=== PATIENT | female | born 1960 | race Caucasian/White ===

== ENCOUNTER 2017-10-11 10:02 | Inpatient (IN) | payer BC ==
[2017-10-11] MEDS ORDERED: IPRATROPIUM-ALBUTEROL 3 ML NEB INHALATION STA (10:20)
--- NOTE | 2017-10-11 10:22 | ED ---
General Adult HPI - General Chief complaint: Shortness of Breath Stated complaint: IZABEL Time Seen by Provider: 10/11/17 10:15 Source: patient, family, RN notes reviewed Mode of arrival: wheelchair Limitations: no limitations - History of Present Illness Initial comments: Patient is a pleasant 37-year-old female presenting to the emergency Department with complaints of shortness of breath. Symptoms have progressed with the past week. Patient does have a history of previous asthma/COPD. No fevers. Patient does have a productive cough with yellow sputum. Patient states symptoms worsen with exertion. - Related Data Home Medications Medication Instructions Recorded Confirmed Albuterol Inhaler [Ventolin 2 puff INHALATION Q4HR PRN 01/04/14 01/04/14 Inhaler] Fluticasone Propionate [Flovent 2 puff INHALATION BID 01/04/14 01/04/14 Hfa 110mcg] Lisinopril [Zestril] 10 mg PO DAILY 01/04/14 01/04/14 Loratadine [Claritin] 10 mg PO DAILY 01/04/14 01/04/14 Previous Rx's Medication Instructions Recorded Naproxen [Naprosyn] 500 mg PO Q12HR #24 tab 01/04/14 Allergies Allergy/AdvReac Type Severity Reaction Status Date / Time amoxicillin trihydrate Allergy Unknown Verified 10/11/17 10:11 [From Augmentin] potassium clavulanate Allergy Unknown Verified 10/11/17 10:11 [From Augmentin] Review of Systems ROS Statement: Those systems with pertinent positive or pertinent negative responses have been documented in the HPI. ROS Other: All systems not noted in ROS Statement are negative. Constitutional: Denies: fever, chills Eyes: Denies: eye pain ENT: Denies: ear pain Respiratory: Reports: cough, dyspnea Cardiovascular: Denies: chest pain Endocrine: Reports: fatigue Gastrointestinal: Denies: abdominal pain Genitourinary: Denies: dysuria Musculoskeletal: Denies: back pain Skin: Denies: rash Neurological: Denies: weakness Past Medical History Past Medical History: Asthma, COPD, Hypertension History of Any Multi-Drug Resistant Organisms: None Reported Past Surgical History: Orthopedic Surgery, Tubal Ligation Additional Past Surgical History / Comment(s): RIGHT ANKLE SURGERY Past Psychological History: No Psychological Hx Reported Smoking Status: Current every day smoker Past Alcohol Use History: Occasional Past Drug Use History: None Reported General Exam Limitations: no limitations General appearance: alert, in no apparent distress Head exam: Present: atraumatic Eye exam: Present: normal appearance, PERRL ENT exam: Present: normal oropharynx Neck exam: Present: normal inspection Respiratory exam: Present: rales (Right base), rhonchi Cardiovascular Exam: Present: regular rate, normal rhythm GI/Abdominal exam: Present: soft. Absent: tenderness Extremities exam: Present: normal inspection. Absent: pedal edema, calf tenderness Neurological exam: Present: alert Psychiatric exam: Present: normal affect, normal mood Skin exam: Present: normal color Course Vital Signs 10/11/17 10/11/17 10/11/17 10:07 10:42 10:50 Temperature 97.8 F Pulse Rate 87 84 Respiratory 20 20 Rate Blood Pressure 109/59 O2 Sat by Pulse 91 L Oximetry 10/11/17 10:51 Temperature Pulse Rate 88 Respiratory Rate Blood Pressure O2 Sat by Pulse Oximetry - Reevaluation(s) Reevaluation #1: 10/11/17 11:49 Patient does meet sepsis criteria. Dr. Ulloa has been paged for admission. IV antibiotics and blood cultures and lactic acid have been ordered. EKG Findings - EKG Comments: EKG Findings:: Normal sinus rhythm 81. HI 150. QRS 88. QT 374. QTC 436. Left axis. Normal QRS. No acute ST change. Medical Decision Making - Lab Data Result diagrams: 10/11/17 10:31 10/11/17 10:31 Lab Results 10/11/17 10/11/17 10/11/17 Range/Units 10:31 10:31 10:31 WBC 31.6 H* (3.8-10.6) k/uL RBC 3.93 (3.80-5.40) m/uL Hgb 14.0 (11.4-16.0) gm/dL Hct 38.9 (34.0-46.0) % MCV 98.9 (80.0-100.0) fL MCH 35.7 H (25.0-35.0) pg MCHC 36.1 (31.0-37.0) g/dL RDW 13.8 (11.5-15.5) % Plt Count 298 (150-450) k/uL Neutrophils % 95 % Lymphocytes % 3 % Monocytes % 2 % Eosinophils % 0 % Basophils % 0 % Neutrophils # 29.8 H (1.3-7.7) k/uL Lymphocytes # 0.9 L (1.0-4.8) k/uL Monocytes # 0.6 (0-1.0) k/uL Eosinophils # 0.1 (0-0.7) k/uL Basophils # 0.0 (0-0.2) k/uL Toxic Granulation Present RBC Morphology Normal PT (9.0-12.0) sec INR (<1.2) APTT (22.0-30.0) sec Sodium 123 L (137-145) mmol/L Potassium 3.8 (3.5-5.1) mmol/L Chloride 89 L (98-107) mmol/L Carbon Dioxide 18 L (22-30) mmol/L Anion Gap 16 mmol/L BUN 93 H* (7-17) mg/dL Creatinine 1.77 H (0.52-1.04) mg/dL Est GFR (CKD-EPI)AfAm 36 (>60 ml/min/1.73 sqM) Est GFR (CKD-EPI)NonAf 31 (>60 ml/min/1.73 sqM) Glucose 100 H (74-99) mg/dL Calcium 7.9 L (8.4-10.2) mg/dL Total Bilirubin 0.5 (0.2-1.3) mg/dL AST 67 H (14-36) U/L ALT 36 (9-52) U/L Alkaline Phosphatase 165 H (38-126) U/L Total Creatine Kinase 24 L (30-135) U/L CK-MB (CK-2) 1.1 (0.0-2.4) ng/mL CK-MB (CK-2) Rel Index 4.6 Troponin I <0.012 (0.000-0.034) ng/mL NT-Pro-B Natriuret Pep pg/mL Total Protein 5.1 L (6.3-8.2) g/dL Albumin 2.3 L (3.5-5.0) g/dL 18 10/11/17 Range/Units 10:31 10:31 WBC (3.8-10.6) k/uL RBC (3.80-5.40) m/uL Hgb (11.4-16.0) gm/dL Hct (34.0-46.0) % MCV (80.0-100.0) fL MCH (25.0-35.0) pg MCHC (31.0-37.0) g/dL RDW (11.5-15.5) % Plt Count (150-450) k/uL Neutrophils % % Lymphocytes % % Monocytes % % Eosinophils % % Basophils % % Neutrophils # (1.3-7.7) k/uL Lymphocytes # (1.0-4.8) k/uL Monocytes # (0-1.0) k/uL Eosinophils # (0-0.7) k/uL Basophils # (0-0.2) k/uL Toxic Granulation RBC Morphology PT 11.2 (9.0-12.0) sec INR 1.2 H (<1.2) APTT 21.7 L (22.0-30.0) sec Sodium (137-145) mmol/L Potassium (3.5-5.1) mmol/L Chloride (98-107) mmol/L Carbon Dioxide (22-30) mmol/L Anion Gap mmol/L BUN (7-17) mg/dL Creatinine (0.52-1.04) mg/dL Est GFR (CKD-EPI)AfAm (>60 ml/min/1.73 sqM) Est GFR (CKD-EPI)NonAf (>60 ml/min/1.73 sqM) Glucose (74-99) mg/dL Calcium (8.4-10.2) mg/dL Total Bilirubin (0.2-1.3) mg/dL AST (14-36) U/L ALT (9-52) U/L Alkaline Phosphatase (38-126) U/L Total Creatine Kinase (30-135) U/L CK-MB (CK-2) (0.0-2.4) ng/mL CK-MB (CK-2) Rel Index Troponin I (0.000-0.034) ng/mL NT-Pro-B Natriuret Pep 3290 pg/mL Total Protein (6.3-8.2) g/dL Albumin (3.5-5.0) g/dL Critical Care Time Critical Care Time: Yes Total Critical Care Time: 32 Disposition Clinical Impression: Sepsis, Pneumonia, Dehydration, Hyponatremia Disposition: ADMITTED IP TO THIS HOSP Condition: Serious Referrals: Kaylee Muniz MD [Primary Care Provider] - 1-2 days Decision Time: 11:50
[2017-10-11 10:42] LABS: Basophils % (A) 0 %; Eosinophils # (A) 0.1 k/uL (0-0.7); Eosinophils % (A) 0 %; HCT 38.9 % (34.0-46.0); Lymphocytes # (A) 0.9 k/uL (1.0-4.8); Lymphocytes % (A) 3 %; MCH 35.7 pg (25.0-35.0); MCHC 36.1 g/dL (31.0-37.0); MCV 98.9 fL (80.0-100.0); Mean Platelet Volume 7.7; Monocytes # (A) 0.6 k/uL (0-1.0); Monocytes % (A) 2 %; Neutrophils # (A) 29.8 k/uL (1.3-7.7); Neutrophils % (A) 95 %; Platelet Count 298 k/uL (150-450); RBC 3.93 m/uL (3.80-5.40); RDW 13.8 % (11.5-15.5)
[2017-10-11 10:48] LABS: WBC 31.6 k/uL (3.8-10.6)
[2017-10-11 10:53] LABS: Albumin 2.3 g/dL (3.5-5.0); Calcium 7.9 mg/dL (8.4-10.2); Potassium 3.8 mmol/L (3.5-5.1); Total Bilirubin 0.5 mg/dL (0.2-1.3); Total Protein 5.1 g/dL (6.3-8.2)
[2017-10-11 10:55] LABS: INR 1.2 (<1.2); Prothrombin Time 11.2 sec (9.0-12.0)
[2017-10-11 10:59] LABS: Toxic Granulation Present
[2017-10-11 11:02] LABS: Creatine Kinase 24 U/L (30-135)
[2017-10-11 11:03] LABS: Partial Thromboplastin Time 21.7 sec (22.0-30.0)
--- NOTE | 2017-10-11 11:08 | XR ---
EXAMINATION TYPE: XR chest 2V DATE OF EXAM: 10/11/2017 HISTORY: difficulty breathing. REFERENCE: NONE. FINDINGS: There is patchy airspace disease present bilaterally, worse on the right than the left. I s uspect a small right-sided effusion. The heart is mildly enlarged. IMPRESSION: 1. PATCHY BILATERAL INFILTRATES, WORSE ON THE RIGHT THAN THE LEFT. 2. SMALL RIGHT EFFUSION. 4. MILD CARDIOMEGALY.
[2017-10-11 11:16] LABS: Creatine Kinase MB 1.1 ng/mL (0.0-2.4); Troponin I <0.012 ng/mL (0.000-0.034)
[2017-10-11] MEDS ORDERED: AZITHROMYCIN 500 MG in SODIUM CHLORIDE 0.9% 250 ML IVPB STA (11:43)
[2017-10-11] MEDS ORDERED: IPRATROPIUM-ALBUTEROL 3 ML NEB INHALATION PRN (11:43)
[2017-10-11] MEDS ORDERED: PNEUMONIA PROTOCOL UTILIZED 1 EACH MISC PO PRN (11:43)
[2017-10-11] MEDS ORDERED: cefTRIAXone IN SWFI 1,000 MG/10 ML SYRINGE IVP STA (11:43)
[2017-10-11] MEDS ORDERED: SODIUM CHLORIDE 0.9% 1,000 ML IV STA (11:52)
[2017-10-11] MEDS ORDERED: AZTREONAM 2 GM in SODIUM CHLORIDE 0.9% 100 ML IVPB STA (12:01)
[2017-10-11] MEDS ORDERED: LEVOFLOXACIN 750MG-D5W PMX 750 MG in DEXTROSE/WATER 1 150ML.BAG IVPB STA (12:01)
[2017-10-11] MEDS: IPRATROPIUM-ALBUTEROL 3 ML NEB INHALATION SCH ×3 (12:07→21:18)
[2017-10-11] MEDS ORDERED: AZTREONAM 2 GM in SODIUM CHLORIDE 0.9% 100 ML IVPB SCH (16:00)
[2017-10-11] MEDS: AZTREONAM 1 GM in SODIUM CHLORIDE 0.9% 50 ML IVPB SCH ×2 (16:54→23:37)
[2017-10-11] MEDS: methylPREDNISolone SOD SUCCI 125 MG/2 ML VIAL IV SCH ×2 (18:44→23:37)
[2017-10-11] MEDS: SODIUM CHLORIDE 0.9% 1,000 ML IV SCH ×2 (18:45→23:44)
--- NOTE | 2017-10-11 19:16 | CT ---
EXAMINATION TYPE: CT chest wo con DATE OF EXAM: 10/11/2017 COMPARISON: Radiograph today HISTORY: 57-year-old female, pneumonia, possible lung mass, Cough and fever TECHNIQUE: Contiguous axial scanning of the chest without IV contrast. Coronal and sagittal reconstru ctions performed. CT DLP: 135.5 mGycm Automated exposure control for dose reduction was used. FINDINGS: Heart normal size without pericardial effusion. Borderline ectasia ascending aorta 3.5 cm. There is conventional arterial vessel branching anatomy. Scattered nonenlarged and mildly enlarged mediastinal lymph nodes measure up to 1.1 cm, right paratra cheal region. Likely reactive. There is a trace right pleural effusion. Multifocal areas of confluent groundglass throughout the left lung and more confluent mixed groundgla ss, consolidation, and interstitial thickening throughout the right lung. No discrete mass is identif ied. Visualized upper abdomen shows no gross abnormality. Bones: Degenerative disc disease lower thoracic spine. IMPRESSION: 1. MULTIFOCAL INFILTRATES, RIGHT GREATER THAN LEFT AND A TRACE RIGHT PLEURAL EFFUSION. 2. These infiltrates show mixed groundglass, consolidation, and interstitial thickening. 3. Differential considerations include multifocal conventional pneumonia, hypersensitivity pneumoniti s, ARDS, pulmonary alveolar proteinosis, DOOR OPENER, vasculitis/DAH, eosinophilic pneumonia, noncardiogenic pulmonary edema, atypical infections including mycoplasma pneumonia and PCP, and alveolar sarcoidosis . Further clinical correlation is needed. 3. Follow-up after treatment to ensure clearance as MILAD can also demonstrate this appearance.
[2017-10-11] MEDS: HEPARIN SODIUM,PORCINE 5,000 UNIT/ML 1 ML VIAL SQ SCH (19:50)
[2017-10-11] MEDS: FAMOTIDINE 20 MG TAB PO SCH (19:50)
[2017-10-11] MEDS ORDERED: BUDESONIDE 1 MG/2 ML NEBU INHALATION SCH (20:00)
[2017-10-11] MEDS: BUDESONIDE 0.5 MG/2 ML NEBU INHALATION SCH (21:18)
--- NOTE | 2017-10-11 21:20 | CONS ---
CONSULTATION Iris Walker is a 57-year-old female who presented to the ER with increasing cough, shortness of breath. This has been associated with wheezing. She had some anterior chest tightness I believe more on the right than the left. She denies having any fever or chills. Chest x-ray was done which showed extensive right lower zone infiltrate. She had been coughing up yellowish phlegm. PAST MEDICAL HISTORY: Past medical history is positive for asthma, COPD, hypertension, right ankle surgery. No previous history of pneumonia. FAMILY HISTORY: Positive for COPD in her father. SOCIAL HISTORY: Patient smoked about 3/4 of a pack of cigarettes per day. She has 2 cats and a dog. There is water damage to her home. 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 REVIEW OF SYSTEMS: Noncontributory. PHYSICAL EXAMINATION: The patient was lying in bed. She was in mild respiratory distress. She starts to cough when she lays flat. Her blood pressure is 96/55, respiratory rate of 18, pulse rate of 100, temperature 97.7, O2 saturation on 3 L by nasal cannula is 94%. HEENT reveals pupils equal. No jugular venous distention. Chest reveals crackles in the right base up to about half. Has prolonged expiration with expiratory wheezing. Cardiovascular system was S1, S2. No S3, no S4. No murmurs. ABDOMEN: Soft. There is no pedal edema. ALLERGIES: THE PATIENT IS ALLERGIC TO AUGMENTIN, WHICH CAUSES HER TO HAVE THROAT SWELLING, SHORTNESS OF BREATH AND A RASH. LABS: Reveal a white count of 31.6 1000 with 29.8 1000 neutrophils, 0.9 1000, lymphocytes 0.1 1000 eosinophils. Sodium is 123, potassium 3.8, chloride 89, bicarb 18, BUN 93, creatinine 1.77. Chest x-ray shows extensive right lower lobe infiltrate, possible pleural effusion on that side as well. IMPRESSION: At this time. 1. Acute respiratory failure secondary to right-sided pneumonia in the setting of a patient with asthma with chronic obstructive pulmonary disease. 2. Asthma and chronic obstructive pulmonary disease with acute exacerbation. 3. Sepsis with systemic inflammatory response. 4. Acute renal failure in part due to acute tubular necrosis and prerenal azotemia. 5. Hyponatremia, etiology which is unclear. This may be due to a Syndrome of inappropriate antidiuretic hormone and could be suggestive of an underlying malignancy. 6. Leukocytosis, which may be due to pneumonia. However, the patient had not complained of fever and chills and will need to follow her white count to make sure there is no other reason for her leukocytosis. 7. Medical debility. 8. Hypothyroidism. At this point in time, keep her on GI and DVT Prophylaxis. Start her on Pepcid and subcutaneous heparin. Continue her on aztreonam at this time. Have her seen by ID. Keep her on bronchodilators but switch her Q-Letty to budesonide. Add methylprednisolone to regimen because of significant bronchospasm and would check a CT scan of the chest to make sure there is no underlying malignancy. Continue intravenous fluids and watch her electrolytes closely. Depending on how she does, she may need further workup or investigation. I would like to thank you for allowing me to care for this patient. MMYOHANA / VICKIE: [phone] /
[2017-10-11] MEDS: ACETAMINOPHEN TAB 500 MG TAB PO PRN (23:44)
[2017-10-12] MEDS: LEVOTHYROXINE 50 MCG TAB PO SCH (06:17)
[2017-10-12] MEDS: methylPREDNISolone SOD SUCCI 125 MG/2 ML VIAL IV SCH ×3 (06:17→17:24)
--- NOTE | 2017-10-12 07:37 | XR ---
EXAMINATION TYPE: XR chest 2V DATE OF EXAM: 10/12/2017 COMPARISON: Prior chest x-ray 10/11/2017 HISTORY: Pneumonia, cough TECHNIQUE: Frontal and lateral views of the chest are obtained. FINDINGS: Airspace disease persists in the right lower lobe greater than left lung. No evident pneum othorax. Clavicular deformity in the right is stable. Interstitium is mildly increased. There are ove rlying cardiac leads. Heart size is stable. IMPRESSION: Findings compatible with pneumonia right greater than left, there may be a component of volume overload, correlate to exclude pulmonary venous hypertension and interstitial edema
[2017-10-12] MEDS: IPRATROPIUM-ALBUTEROL 3 ML NEB INHALATION SCH ×4 (08:11→20:55)
[2017-10-12] MEDS: BUDESONIDE 0.5 MG/2 ML NEBU INHALATION SCH ×2 (08:11→20:55)
[2017-10-12 08:19] LABS: Basophils % (A) 0 %; Eosinophils % (A) 0 %; HCT 39.4 % (34.0-46.0); HGB 13.7 gm/dL (11.4-16.0); Lymphocytes # (A) 0.8 k/uL (1.0-4.8); Lymphocytes % (A) 6 %; MCH 35.3 pg (25.0-35.0); MCHC 34.9 g/dL (31.0-37.0); MCV 101.3 fL (80.0-100.0); Macrocytosis Slight; Mean Platelet Volume 7.7; Monocytes # (A) 0.3 k/uL (0-1.0); Monocytes % (A) 2 %; Neutrophils % (A) 91 %; Platelet Count 388 k/uL (150-450); RBC 3.89 m/uL (3.80-5.40); RDW 13.8 % (11.5-15.5); WBC 14.3 k/uL (3.8-10.6)
[2017-10-12] MEDS: AZTREONAM 1 GM in SODIUM CHLORIDE 0.9% 50 ML IVPB SCH (08:27)
[2017-10-12] MEDS: FAMOTIDINE 20 MG TAB PO SCH (08:29)
[2017-10-12] MEDS: SODIUM CHLORIDE 0.9% 1,000 ML IV SCH (08:30)
[2017-10-12] MEDS: HEPARIN SODIUM,PORCINE 5,000 UNIT/ML 1 ML VIAL SQ SCH ×2 (08:30→20:12)
[2017-10-12 09:20] LABS: Albumin 2.5 g/dL (3.5-5.0); Calcium 8.1 mg/dL (8.4-10.2); Total Bilirubin 0.5 mg/dL (0.2-1.3); Total Protein 5.6 g/dL (6.3-8.2)
[2017-10-12] MEDS ORDERED: LORazepam 2 MG/ML INJ IV PRN ×3 (10:44)
[2017-10-12] MEDS ORDERED: THIAMINE 100 MG/ML 2 ML VIAL IM STA (10:46)
--- NOTE | 2017-10-12 10:48 | P.HPIM ---
History of Present Illness H&P Date: 10/12/17 Chief Complaint: Worsening shortness of breath This is a 57-year-old female, patient of Dr. Howell. She has known past medical history of COPD, hypertension, hypothyroidism and nicotine dependence. Patient reports to the emergency room with complaints of worsening shortness of breath and productive cough for one week. Chest x-ray on admission showed patchy bilateral infiltrates worse on the right than the left. White count on admission 31.6 lactic acid 1.0. She was started on IV antibiotics Azactam and Levaquin in the ER. Pulmonary service and infectious disease consulted. Sputum culture pending. Influenza screen negative. Patient had a computed tomography scan of the chest showing multifocal infiltrates right greater than left and trace right pleural effusion. Patient was also started on IV steroids and nebulizer treatments in the ER. Patient had evidence of hyponatremia with a sodium of 123 inches, 134 with IV fluids. Also evidence of acute kidney injury with creatinine of 1.7 which is improved to 1.35. Patient also had some hypotension in the ER which improved with IV fluids. Last blood pressure is 126 /69. Patient is having chest pain with her cough. Denies any nausea or vomiting, denies any fever or chills or sweats. Denies any urinary symptoms. Was complaining of some constipation did have a small hard bowel movement this morning. She is drinking prune juice and Colace has been added. Patient is also currently on 3 L nasal cannula satting at 94%. She does not use oxygen at home. Review of Systems Please refer to HPI otherwise unremarkable Past Medical History Past Medical History: Asthma, COPD, Hypertension History of Any Multi-Drug Resistant Organisms: None Reported Past Surgical History: Orthopedic Surgery, Tubal Ligation Additional Past Surgical History / Comment(s): RIGHT ANKLE SURGERY Past Anesthesia/Blood Transfusion Reactions: No Reported Reaction Past Psychological History: No Psychological Hx Reported Smoking Status: Current every day smoker Past Alcohol Use History: Daily (1 beer daily), Occasional Past Drug Use History: None Reported - Past Family History Mother History Unknown: Yes Family Medical History: Hypertension Father Family Medical History: COPD, Coronary Artery Disease (CAD) Medications and Allergies Home Medications Medication Instructions Recorded Confirmed Type Albuterol Inhaler [Ventolin 2 puff INHALATION RT-Q4H PRN 01/04/14 10/11/17 History Inhaler] Lisinopril [Zestril] 10 mg PO DAILY 01/04/14 10/11/17 History Beclomethasone Dipropionate [Qvar 1 puff INHALATION RT-BID 10/11/17 10/11/17 History 80 mcg] Levothyroxine Sodium [Synthroid] 50 mcg PO DAILY 10/11/17 10/11/17 History Multivit with Calcium,Iron,Min 1 tab PO DAILY 10/11/17 10/11/17 History [Women's Multivitamin] [place]-3 Fatty Acids/Fish Oil [Fish 1 cap PO DAILY 10/11/17 10/11/17 History Oil 1,000 mg Softgel] Allergies Allergy/AdvReac Type Severity Reaction Status Date / Time amoxicillin trihydrate Allergy Unknown Verified 10/11/17 12:44 [From Augmentin] potassium clavulanate Allergy Unknown Verified 10/11/17 12:44 [From Augmentin] Physical Exam Vitals: Vital Signs Temp Pulse Pulse Resp BP BP Pulse Ox 10/12/17 08:29 84 10/12/17 08:11 88 10/12/17 08:00 97.9 F 84 18 126/69 94 L 10/12/17 04:00 97.4 F L 82 24 107/64 94 L 10/11/17 23:47 99.3 F 92 20 101/55 94 L 10/11/17 21:43 92 10/11/17 21:25 85 10/11/17 20:00 18 10/11/17 19:48 98.9 F 91 18 98/57 93 L 10/11/17 18:09 90 10/11/17 18:00 90 10/11/17 15:45 97.7 F 100 18 96/55 94 L 10/11/17 15:17 97.8 F 93 18 111/63 94 L 10/11/17 15:11 93 18 111/63 94 L 10/11/17 14:20 88 10/11/17 14:10 90 10/11/17 14:00 93 18 111/61 93 L 10/11/17 12:24 86 18 110/57 96 10/11/17 10:51 88 10/11/17 10:50 20 10/11/17 10:42 84 Intake and Output 10/11/17 10/12/17 10/12/17 22:59 06:59 14:59 Intake Total 100 400 360 Output Total 0 Balance 100 400 360 Intake: Intake, IV Titration 400 Amount Sodium Chloride 0.9% 1, 400 000 ml @ 100 mls/hr IV . [facility] Rx#:[id number] Oral 100 360 Output: Urine 0 Other: Voiding Method Toilet Toilet # Voids 1 Weight 56.69 kg 54.4 kg Head normocephalic Neck supple Lungs coarse breath sounds bilaterally with a few extra 20 wheezes Heart regular rate and rhythm S1-S2, no rub or gallop Abdomen is soft nontender nondistended positive bowel sounds no hepatosplenomegaly Extremities no edema Neuro alert and orientated to 3 Results CBC & Chem 7: 10/12/17 07:47 10/12/17 07:47 Labs: Abnormal Lab Results - Last 24 Hours (Table) 10/11/17 10/11/17 10/11/17 Range/Units 10:31 10:31 10:31 WBC 31.6 H* (3.8-10.6) k/uL MCV (80.0-100.0) fL MCH 35.7 H (25.0-35.0) pg Neutrophils # 29.8 H (1.3-7.7) k/uL Lymphocytes # 0.9 L (1.0-4.8) k/uL INR (<1.2) APTT (22.0-30.0) sec Sodium 123 L (137-145) mmol/L Chloride 89 L (98-107) mmol/L Carbon Dioxide 18 L (22-30) mmol/L BUN 93 H* (7-17) mg/dL Creatinine 1.77 H (0.52-1.04) mg/dL Glucose 100 H (74-99) mg/dL Calcium 7.9 L (8.4-10.2) mg/dL AST 67 H (14-36) U/L Alkaline Phosphatase 165 H (38-126) U/L Total Creatine Kinase 24 L (30-135) U/L Total Protein 5.1 L (6.3-8.2) g/dL Albumin 2.3 L (3.5-5.0) g/dL 10/11/17 10/12/17 10/12/17 Range/Units 10:31 07:47 07:47 WBC 14.3 H (3.8-10.6) k/uL MCV 101.3 H (80.0-100.0) fL MCH 35.3 H (25.0-35.0) pg Neutrophils # 13.0 H (1.3-7.7) k/uL Lymphocytes # 0.8 L (1.0-4.8) k/uL INR 1.2 H (<1.2) APTT 21.7 L (22.0-30.0) sec Sodium 134 L (137-145) mmol/L Chloride (98-107) mmol/L Carbon Dioxide 20 L (22-30) mmol/L BUN 73 H (7-17) mg/dL Creatinine 1.35 H (0.52-1.04) mg/dL Glucose 129 H (74-99) mg/dL Calcium 8.1 L (8.4-10.2) mg/dL AST 58 H (14-36) U/L Alkaline Phosphatase 164 H (38-126) U/L Total Creatine Kinase (30-135) U/L Total Protein 5.6 L (6.3-8.2) g/dL Albumin 2.5 L (3.5-5.0) g/dL Microbiology - Last 24 Hours (Table) 10/11/17 15:45 Gram Stain - Preliminary Sputum 10/11/17 11:52 Blood Culture Gram Stain - Preliminary Blood 10/11/17 11:52 Blood Culture - Final Blood Thrombosis Risk Factor Assmnt - Choose All That Apply Any of the Below Risk Factors Present?: Yes Each Factor Represents 1 point: Age 41-60 years Other Risk Factors: No Other congenital or acquired thrombophilia - If yes, enter type in comment: No Thrombosis Risk Factor Assessment Total Risk Factor Score: 1 Thrombosis Risk Factor Assessment Level: Low Risk Assessment and Plan Assessment: 1. Acute hypoxic respiratory failure secondary pneumonia and COPD exacerbation 2. Bilateral pneumonia right greater than left: Collect sputum culture. Infectious disease and pulmonary service are following. Infectious disease has adjusted antibiotics. Patient is currently on Rocephin and Levaquin. White count has come down from 31.6-14.3 3. Acute COPD exacerbation: Continue with IV Solu-Medrol and bronchodilators 4. Acute kidney injury: Likely related to dehydration and poor oral intake. Improving with IV fluids. Creatinine has come down from 1.77-1.35 5. Hyponatremia sodium 123 on admission up to 134 after IV fluids. Also completely related to patient's dehydration or daily beer intake. Repeat sodium level in a.m. no evidence of malignancy on CAT scan 6. Hypothyroidism continue Synthroid 7. Nicotine dependence discussed smoking cessation. At this time patient is refusing nicotine patch. 8. Mildly elevated AST and alk phos: No abdominal pain. Likely related to patient's alcohol use. Levels are trending down, continue to monitor 9. Alcohol dependence: Patient reporting she drinks 1 beer Daily. She's been placed on the CIWA protocol with multivitamin and thiamine 10. Essential hypertension: Patient did have hypotension on admission. Improved with IV fluids. Lisinopril on hold. GI prophylaxis Pepcid and DVT prophylaxis subcu heparin Time with Patient: Greater than 30 (Greater than 50% of the total time spent in counseling and coordination of care.I performed an examination of the patient and discussed their management with the physician Receptionist/Telephone Operator. I have reviewed the Physician Receptionist/Telephone Operator's notes and agree with the documented findings and plan of care)
[2017-10-12] MEDS ORDERED: AZITHROMYCIN 500 MG TAB PO SCH (11:43)
[2017-10-12] MEDS ORDERED: cefTRIAXone IN SWFI 1,000 MG/10 ML SYRINGE IVP SCH (11:43)
--- NOTE | 2017-10-12 11:52 | P.CNPUL ---
History of Present Illness Consult date: 10/12/17 Reason for consult: dyspnea, cough, COPD, hypoxemia, pneumonia Chief complaint: Shortness of breath and cough for over a week History of present illness: Ms. Walker is a 57-year-old female with extensive history of smoking and nicotine use she has not been feeling well with progressive increased shortness breath cough congestion for over 7 days to a week duration patient has been treated with on outpatient setting without any significant relief due to persistent problem increasing breathing difficulty decided to come into emergency department for further evaluation and intervention and treatment she denies any hemoptysis does have cough which is associated with thick sputum production her appetite has been poor she has lost 15-20 pounds in the last couple of weeks patient has been being treated with IV steroids breathing treatments antibiotics patient also had the recent computed tomography scan performed which shows patchy bilateral infiltrate laboratory data significant for acute renal failure significant hyponatremia and severe leukocytosis in addition patient has been hypoxic as well and hypotensive requiring fluid resuscitation emergency department lactic acid was however normal Chest x-ray on admission showed patchy bilateral infiltrates worse on the right than the left. White count on admission 31.6 lactic acid 1.0. She was started on IV antibiotics Azactam and Levaquin in the ER. Sputum culture pending. Influenza screen negative. Patient had a computed tomography scan of the chest showing multifocal infiltrates right greater than left and trace right pleural effusion. Patient was also started on IV steroids and nebulizer treatments in the ER. Patient had evidence of hyponatremia with a sodium of 123 inches, 134 with IV fluids. Patient also has evidence of acute kidney injury with creatinine of 1.7 which is improved to 1.35. Patient also had some hypotension in the ER which improved with IV fluids. Last blood pressure is 126/69. Patient is having chest pain with her cough. On specific questioning patient denies any nausea or vomiting, denies any fever or chills or sweats. Denies any urinary symptoms. Was complaining of some constipation did have a small hard bowel movement this morning. She is drinking prune juice and Colace has been added. Patient is also currently on 3 L nasal cannula satting at 94%. She does not use oxygen at home. He does not have a nebulizer machine she is still a active smoker has been smoking about a week ago. She uses albuterol as needed MDI along with Qvar without any significant relief Review of Systems All systems: negative Past Medical History Past Medical History: Asthma, COPD, Hypertension History of Any Multi-Drug Resistant Organisms: None Reported Past Surgical History: Orthopedic Surgery, Tubal Ligation Additional Past Surgical History / Comment(s): RIGHT ANKLE SURGERY Past Anesthesia/Blood Transfusion Reactions: No Reported Reaction Past Psychological History: No Psychological Hx Reported Smoking Status: Current every day smoker Past Alcohol Use History: Daily (1 beer daily), Occasional Past Drug Use History: None Reported - Past Family History Mother History Unknown: Yes Family Medical History: Hypertension Father Family Medical History: COPD, Coronary Artery Disease (CAD) Medications and Allergies Home Medications Medication Instructions Recorded Confirmed Type Albuterol Inhaler [Ventolin 2 puff INHALATION RT-Q4H PRN 01/04/14 10/11/17 History Inhaler] Lisinopril [Zestril] 10 mg PO DAILY 01/04/14 10/11/17 History Beclomethasone Dipropionate [Qvar 1 puff INHALATION RT-BID 10/11/17 10/11/17 History 80 mcg] Levothyroxine Sodium [Synthroid] 50 mcg PO DAILY 10/11/17 10/11/17 History Multivit with Calcium,Iron,Min 1 tab PO DAILY 10/11/17 10/11/17 History [Women's Multivitamin] [place]-3 Fatty Acids/Fish Oil [Fish 1 cap PO DAILY 10/11/17 10/11/17 History Oil 1,000 mg Softgel] Allergies Allergy/AdvReac Type Severity Reaction Status Date / Time amoxicillin trihydrate Allergy Unknown Verified 10/11/17 12:44 [From Augmentin] potassium clavulanate Allergy Unknown Verified 10/11/17 12:44 [From Augmentin] Physical Exam Vitals: Vital Signs Temp Pulse Pulse Resp BP BP Pulse Ox 10/12/17 11:35 76 10/12/17 08:29 84 10/12/17 08:11 88 10/12/17 08:00 97.9 F 84 18 126/69 94 L 10/12/17 04:00 97.4 F L 82 24 107/64 94 L 10/11/17 23:47 99.3 F 92 20 101/55 94 L 10/11/17 21:43 92 10/11/17 21:25 85 10/11/17 20:00 18 10/11/17 19:48 98.9 F 91 18 98/57 93 L 10/11/17 18:09 90 10/11/17 18:00 90 10/11/17 15:45 97.7 F 100 18 96/55 94 L 10/11/17 15:17 97.8 F 93 18 111/63 94 L 10/11/17 15:11 93 18 111/63 94 L 10/11/17 14:20 88 10/11/17 14:10 90 10/11/17 14:00 93 18 111/61 93 L 10/11/17 12:24 86 18 110/57 96 Intake and Output 10/11/17 10/12/17 10/12/17 22:59 06:59 14:59 Intake Total 100 400 360 Output Total 0 Balance 100 400 360 Intake: Intake, IV Titration 400 Amount Sodium Chloride 0.9% 1, 400 000 ml @ 100 mls/hr IV . Q10H JENNY Rx#:[id number] Oral 100 360 Output: Urine 0 Other: Voiding Method Toilet Toilet # Voids 1 Weight 56.69 kg 54.4 kg Limitations: no limitations General appearance: alert, in no apparent distress, does get short of breath activity and exertion Head exam: Unremarkable and normal Eye exam: normal appearance, PERRL ENT exam: normal oropharynx Neck exam: Mild prominence reticular veins were seen, no significant jugular vein is distention no bruits present Respiratory exam: Coarse breath sounds, bilateral rales (Right base), rhonchi Cardiovascular Exam: regular rate, normal rhythm, no gallop rub or murmur GI/Abdominal exam: soft. Absent: tenderness Extremities exam: normal inspection. Absent: pedal edema, calf tenderness Neurological exam: alert, oriented 3 no focal neurological deficit moving all 4 extremities Psychiatric exam: normal affect, normal mood Skin exam: normal color Results - Laboratory Findings CBC and BMP: 10/12/17 07:47 10/12/17 07:47 PT/INR, D-dimer PT 11.2 sec (9.0-12.0) 10/11/17 10:31 INR 1.2 (<1.2) H 10/11/17 10:31 Abnormal lab findings: Abnormal Labs 10/11/17 10/11/17 10/11/17 10:31 10:31 10:31 WBC 31.6 H* MCV MCH 35.7 H Neutrophils # 29.8 H Lymphocytes # 0.9 L INR APTT Sodium 123 L Chloride 89 L Carbon Dioxide 18 L BUN 93 H* Creatinine 1.77 H Glucose 100 H Calcium 7.9 L AST 67 H Alkaline Phosphatase 165 H Total Creatine Kinase 24 L Total Protein 5.1 L Albumin 2.3 L 10/11/17 10/12/17 10/12/17 10:31 07:47 07:47 WBC 14.3 H MCV 101.3 H MCH 35.3 H Neutrophils # 13.0 H Lymphocytes # 0.8 L INR 1.2 H APTT 21.7 L Sodium 134 L Chloride Carbon Dioxide 20 L BUN 73 H Creatinine 1.35 H Glucose 129 H Calcium 8.1 L AST 58 H Alkaline Phosphatase 164 H Total Creatine Kinase Total Protein 5.6 L Albumin 2.5 L - Diagnostic Findings Chest x-ray: report reviewed, image reviewed CT scan - chest: report reviewed, image reviewed (Findings as noted above) Assessment and Plan Assessment: Severe sepsis Bilateral pneumonia Acute hypoxic respirator failure Severe COPD Acute renal failure related to pneumonia dehydration and likely acute tubular necrosis related to that Severe and significant hyponatremia Hypertension hypertensive cardiovascular disease Extensive history of smoking and nicotine use Plan: Broad-spectrum antibiotic IV steroids Breathing treatments Gentle rehydration Patient has been consult educated by about smoking cessation Deep breathing exercise incentive spirometry Increase activity as tolerated Monitor renal functions and sodium level closely Patient would require follow up on outpatient basis for COPD evaluation therapy and follow up on bilateral pulmonary infiltrate, in case if infiltrate do not resolve and patient would require bronchial biopsy and bronchoscopy Further recommendations pending plan of care as per clinical response of patient Time with Patient: Greater than 30
[2017-10-12] MEDS ORDERED: MULTIVITAMINS, THERA 1 EACH TAB PO SCH (12:00)
[2017-10-12] MEDS: cefTRIAXone IN SWFI 2,000 MG/20 ML SYRINGE IVP SCH (13:13)
[2017-10-12] MEDS: MULTIVITAMINS, THERA 1 EACH TAB PO SCH (13:13)
[2017-10-12] MEDS: THIAMINE 100 MG TAB PO SCH (17:22)
[2017-10-12] MEDS: DOCUSATE 100 MG CAP PO SCH (20:11)
[2017-10-12] MEDS: ACETAMINOPHEN TAB 500 MG TAB PO PRN (20:11)
[2017-10-12 21:13] LABS: Hemoglobin A1C 5.3 % (4.0-6.0)
--- NOTE | 2017-10-13 | CONS ---
CONSULTATION DATE OF SERVICE: 10/12/2017 REASON FOR FOLLOWUP: Sepsis, pneumonia, bacteremia. HISTORY OF PRESENT ILLNESS: The patient is a 57-year-old female with a past medical history significant for COPD, current smoker, presenting to the ER at [facility] yesterday with chief complaint of increasing shortness of breath. This has going on for about a week prior to presentation to hospital. The patient also has a cough productive of yellow sputum, [id number] amount. No hemoptysis. He also has some left-sided chest pain, more of a dull aching pain, especially with deep breaths, with intensity about . The patient did have some fever and chills, but no high-grade fever. With the symptoms the patient has been evaluated by the ER physician. On arrival to the ER, the patient though was afebrile. She was slightly tachycardic with O2 sats in the 90s. The patient did have a white count of 31.6. Did have influenza serology that came back negative. Did have a chest x-ray that shows patchy bilateral infiltrate, worse on the right than on the left, and mild cardiomegaly. A CT of the chest was completed which did show multifocal areas of confluent ground glass throughout the left lung and more confluent concentration. The patient did receive multiple antibiotics in the ER including Rocephin and Azactam. Subsequently admitted to the hospital. Blood cultures were obtained with were positive with gram-positive cocci in chains. Hence, infectious disease was consulted for further recommendations regarding antibiotic therapy. REVIEW OF SYSTEMS: CONSTITUTIONAL: Positive for weakness along with chills. EYES: No complaints. ENT: No complaint. RESPIRATORY: As per HPI. CARDIOVASCULAR: No complaints. GENITOURINARY: No complaint. GASTROINTESTINAL: No complaint. MUSCULOSKELETAL: No complaint. INTEGUMENTARY: No complaint. PSYCHOLOGICAL: No complaint. ENDOCRINE: No complaint. NEUROLOGIC: No complaint. PAST MEDICAL HISTORY: COPD, asthma, hypertension. PAST SURGICAL HISTORY: Right ankle fracture repair and tubal ligation. SOCIAL HISTORY: The patient is currently a smoker, smokes about a pack a day. Drinks beer daily: No drug use. FAMILY HISTORY: Mother with history of hypertension. Father history of coronary disease and COPD. ALLERGIES: AMOXICILLIN. MEDICATIONS: The patient is currently on Azactam, Tylenol, DuoNeb, Pulmicort, Colace, Pepcid, heparin, levofloxacin, Synthroid, Ativan, Solu-Medrol, Theragran, vitamin B1. PHYSICAL EXAMINATION: Blood pressure 121/66, pulse of 79, temperature 98.5, he is 94% on 2 L nasal cannula. GENERAL DESCRIPTION: A middle aged female, up in the bed, in no distress. No tachypnea or accessory muscle of respiration use. HEENT: No pallor or scleral icterus. Oral mucosa is moist. No pharyngeal erythema or thrush. NECK: Trachea central. No thyromegaly. LUNGS: Unlabored breathing. Coarse breath sounds in the bases bilaterally. No wheeze or crackle. HEART: S1, S2. Regular rate and rhythm. ABDOMEN: Soft, no tenderness, no rigidity, no organomegaly. EXTREMITIES: No edema of the feet. No rashes. No muscle . NEUROLOGIC: The patient is awake, alert, oriented x3. Mood and affect normal. LABS: Hemoglobin 13.7, white count 14.3, admission white count 31.6. BUN of 73, creatinine 1.35. Admission creatinine was 1.77. Serology has been negative. Blood culture with gram-positive cocci in chains. Sputum currently pending. DIAGNOSTIC IMPRESSION AND PLAN: 1. Patient admitted to the hospital with increasing shortness of breath. She has a cough, no sputum. The patient does have evidence of bilateral multifocal pneumonia with sputum now showing gram-positive cocci in chains, more likely it is a possible strep pneumo and less likely MRSA pneumonia. 2. Patient with to have borderline kidney function. High risk of nephrotoxicity from vancomycin. 3. Patient with penicillin allergy, limiting number of antibiotics that could be safely used. Did receive dose of Rocephin in the ER without any problem. PLAN: 1. Discontinue the Azactam. 2. Will start the patient on Rocephin 2 g IV piggyback daily. Continue with Levaquin. 3. Depending upon the clinical response as well as cultures, will adjust her medications further if needed. Thank you for this consultation. Will follow this patient along with you. MMODL / IJN: [id number] /
[2017-10-13] MEDS: methylPREDNISolone SOD SUCCI 125 MG/2 ML VIAL IV SCH ×5 (00:10→23:13)
[2017-10-13] MEDS: SODIUM CHLORIDE 0.9% 1,000 ML IV SCH ×2 (06:44→21:10)
[2017-10-13] MEDS: LEVOTHYROXINE 50 MCG TAB PO SCH (06:44)
[2017-10-13 07:28] LABS: Glucose,Whole Blood 131 mg/dL (75-99)
[2017-10-13] MEDS: IPRATROPIUM-ALBUTEROL 3 ML NEB INHALATION SCH ×4 (07:56→20:17)
[2017-10-13] MEDS: BUDESONIDE 0.5 MG/2 ML NEBU INHALATION SCH ×2 (07:56→20:17)
[2017-10-13 08:21] LABS: Basophils % (A) 0 %; Eosinophils % (A) 0 %; HCT 36.2 % (34.0-46.0); HGB 12.1 gm/dL (11.4-16.0); Lymphocytes # (A) 1.2 k/uL (1.0-4.8); Lymphocytes % (A) 9 %; MCH 34.3 pg (25.0-35.0); MCHC 33.4 g/dL (31.0-37.0); MCV 102.5 fL (80.0-100.0); Macrocytosis Slight; Mean Platelet Volume 7.8; Monocytes # (A) 0.5 k/uL (0-1.0); Monocytes % (A) 3 %; Neutrophils % (A) 86 %; Platelet Count 420 k/uL (150-450); RBC 3.53 m/uL (3.80-5.40)
[2017-10-13] MEDS: DOCUSATE 100 MG CAP PO SCH ×2 (08:28→21:09)
[2017-10-13] MEDS: HEPARIN SODIUM,PORCINE 5,000 UNIT/ML 1 ML VIAL SQ SCH ×2 (08:28→21:10)
[2017-10-13 08:30] LABS: Albumin 2.1 g/dL (3.5-5.0); Calcium 7.8 mg/dL (8.4-10.2); Potassium 4.1 mmol/L (3.5-5.1); Total Bilirubin 0.4 mg/dL (0.2-1.3); Total Protein 4.8 g/dL (6.3-8.2)
[2017-10-13] MEDS: cefTRIAXone IN SWFI 2,000 MG/20 ML SYRINGE IVP SCH (08:38)
[2017-10-13] MEDS ORDERED: FAMOTIDINE 20 MG TAB PO SCH (09:00)
[2017-10-13] MEDS ORDERED: LEVOFLOXACIN 750MG-D5W PMX 750 MG in DEXTROSE/WATER 1 150ML.BAG IVPB SCH (09:00)
--- NOTE | 2017-10-13 10:32 | P.PN ---
Subjective Progress Note Date: 10/13/17 This is a 57-year-old female, patient of Dr. Howell. She has known past medical history of COPD, hypertension, hypothyroidism and nicotine dependence. Patient reports to the emergency room with complaints of worsening shortness of breath and productive cough for one week. Chest x-ray on admission showed patchy bilateral infiltrates worse on the right than the left. White count on admission 31.6 lactic acid 1.0. She was started on IV antibiotics Azactam and Levaquin in the ER. Pulmonary service and infectious disease consulted. Sputum culture pending. Influenza screen negative. Patient had a computed tomography scan of the chest showing multifocal infiltrates right greater than left and trace right pleural effusion. Patient was also started on IV steroids and nebulizer treatments in the ER. Patient had evidence of hyponatremia with a sodium of 123 inches, 134 with IV fluids. Also evidence of acute kidney injury with creatinine of 1.7 which is improved to 1.35. Patient also had some hypotension in the ER which improved with IV fluids. Last blood pressure is 126 /69. Patient is having chest pain with her cough. Denies any nausea or vomiting, denies any fever or chills or sweats. Denies any urinary symptoms. Was complaining of some constipation did have a small hard bowel movement this morning. She is drinking prune juice and Colace has been added. Patient is also currently on 3 L nasal cannula satting at 94%. She does not use oxygen at home. 10/13/2017 patient reports that she feels like her cough is getting stuck now and is unable to produce the sputum. Recent echo has been added. Did have some shortness of breath with ambulating to the restroom without her oxygen. She is followed by infectious disease and pulmonary service. Denies any chest pain. Denies any nausea vomiting. Reports having a small bowel movement yesterday. Denies any burning with urination. Objective - Vital Signs Vital signs: Vital Signs Temp 97.3 F L 10/13/17 07:00 Pulse 88 10/13/17 08:15 Resp 20 10/13/17 07:00 BP 115/72 10/13/17 07:00 Pulse Ox 95 10/13/17 07:00 Intake & Output 10/12/17 10/13/17 10/13/17 18:59 06:59 18:59 Intake Total 822 100 Balance 822 100 Intake: Oral 822 100 Other: Voiding Method Toilet # Voids 2 1 - Exam Head normocephalic Neck supple Lungs diminished bilaterally Heart regular rate and rhythm S1-S2, no rub or gallop Abdomen is soft nontender nondistended positive bowel sounds no hepatosplenomegaly Extremities no edema Neuro alert and orientated to 3. No hand tremor. - Labs CBC & Chem 7: 10/13/17 07:36 10/13/17 07:36 Labs: Abnormal Lab Results - Last 24 Hours (Table) 10/13/17 10/13/17 10/13/17 Range/Units 07:23 07:36 07:36 WBC 14.0 H (3.8-10.6) k/uL RBC 3.53 L (3.80-5.40) m/uL MCV 102.5 H (80.0-100.0) fL Neutrophils # 12.0 H (1.3-7.7) k/uL Sodium 135 L (137-145) mmol/L Carbon Dioxide 21 L (22-30) mmol/L BUN 50 H (7-17) mg/dL Glucose 136 H (74-99) mg/dL POC Glucose (mg/dL) 131 H (75-99) mg/dL Calcium 7.8 L (8.4-10.2) mg/dL AST 42 H (14-36) U/L Total Protein 4.8 L (6.3-8.2) g/dL Albumin 2.1 L (3.5-5.0) g/dL Microbiology - Last 24 Hours (Table) 10/12/17 07:47 Blood Culture - Preliminary Blood No Growth after 24 hours 10/11/17 15:45 Gram Stain - Final Sputum Sputum Culture - Final 10/11/17 11:52 Blood Culture Gram Stain - Preliminary Blood Blood Culture - Preliminary Streptococcus pneumoniae Assessment and Plan Assessment: 1. Acute hypoxic respiratory failure secondary pneumonia and COPD exacerbation 2. Bilateral pneumonia right greater than left with sepsis present on admission : Sputum culture showing normal nisreen. Infectious disease and pulmonary service are following. Patient is currently on Rocephin and Levaquin. Add Mucinex 3. Acute COPD exacerbation: Continue with IV Solu-Medrol and bronchodilators 4. Acute kidney injury: Likely related to dehydration and pneumonia. Improved with IV fluids. Creatinine has now normalized 5. Hyponatremia sodium 123 on admission: Sodium level improving now up to 135. Also completely related to patient's dehydration or daily beer intake. Repeat sodium level in a.m. no evidence of malignancy on CAT scan 6. Hypothyroidism continue Synthroid 7. Nicotine dependence discussed smoking cessation. At this time patient is refusing nicotine patch. 8. Mildly elevated AST and alk phos: No abdominal pain. Likely related to patient's alcohol use. Levels are trending down, continue to monitor 9. Alcohol dependence: Patient reporting she drinks 1 beer Daily. She's been placed on the CIWA protocol with multivitamin and thiamine 10. Essential hypertension: Patient did have hypotension on admission. Improved with IV fluids. Lisinopril on hold. 11. One positive blood culture with Streptococcus pneumonia. Repeat blood culture negative. We'll await further infectious disease recommendations GI prophylaxis Pepcid and DVT prophylaxis subcu heparin Consult physical therapy I performed an examination of the patient and discussed their management with the physician Cutter Down. I have reviewed the Physician Cutter Down's notes and agree with the documented findings and plan of care
[2017-10-13] MEDS: guaiFENesin 600 MG TABLET.ER PO SCH ×2 (11:15→21:10)
[2017-10-13] MEDS: THIAMINE 100 MG TAB PO SCH ×2 (12:19→17:07)
[2017-10-13] MEDS: MULTIVITAMINS, THERA 1 EACH TAB PO SCH (12:19)
[2017-10-13 12:21] LABS: Glucose,Whole Blood 112 mg/dL (75-99)
--- NOTE | 2017-10-13 17:31 | P.PN ---
Subjective Progress Note Date: 10/13/17 Principal diagnosis: Severe sepsis, bilateral pneumonia, acute hypoxic respirator failure, severe COPD, acute renal failure, electrolyte imbalance with severe hypernatremia, 10/13/2017, patient seen eval examined during the rounds clinically patient remained short of breath but severity has improved still have intermittent cough congestion patient remains on broad-spectrum antibiotics breathing treatment and steroids last chest x-ray performed yesterday reviewed and compared with the prior x-rays other radiographic data reviewed as well care plan discussed with the patient at length, patient has been consult about smoking cessation Ms. Walker is a 57-year-old female with extensive history of smoking and nicotine use she has not been feeling well with progressive increased shortness breath cough congestion for over 7 days to a week duration patient has been treated with on outpatient setting without any significant relief due to persistent problem increasing breathing difficulty decided to come into emergency department for further evaluation and intervention and treatment she denies any hemoptysis does have cough which is associated with thick sputum production her appetite has been poor she has lost 15-20 pounds in the last couple of weeks patient has been being treated with IV steroids breathing treatments antibiotics patient also had the recent computed tomography scan performed which shows patchy bilateral infiltrate laboratory data significant for acute renal failure significant hyponatremia and severe leukocytosis in addition patient has been hypoxic as well and hypotensive requiring fluid resuscitation emergency department lactic acid was however normal Chest x-ray on admission showed patchy bilateral infiltrates worse on the right than the left. White count on admission 31.6 lactic acid 1.0. She was started on IV antibiotics Azactam and Levaquin in the ER. Sputum culture pending. Influenza screen negative. Patient had a computed tomography scan of the chest showing multifocal infiltrates right greater than left and trace right pleural effusion. Patient was also started on IV steroids and nebulizer treatments in the ER. Patient had evidence of hyponatremia with a sodium of 123 inches, 134 with IV fluids. Patient also has evidence of acute kidney injury with creatinine of 1.7 which is improved to 1.35. Patient also had some hypotension in the ER which improved with IV fluids. Last blood pressure is 126/69. Patient is having chest pain with her cough. On specific questioning patient denies any nausea or vomiting, denies any fever or chills or sweats. Denies any urinary symptoms. Was complaining of some constipation did have a small hard bowel movement this morning. She is drinking prune juice and Colace has been added. Patient is also currently on 3 L nasal cannula satting at 94%. She does not use oxygen at home. He does not have a nebulizer machine she is still a active smoker has been smoking about a week ago. She uses albuterol as needed MDI along with Qvar without any significant relief Objective - Vital Signs Vital signs: Vital Signs Temp 97.2 F L 10/13/17 15:06 Pulse 86 10/13/17 17:03 Resp 18 10/13/17 15:06 BP 145/71 10/13/17 15:06 Pulse Ox 98 10/13/17 15:06 Intake & Output 10/12/17 10/13/17 10/13/17 18:59 06:59 18:59 Intake Total 822 100 480 Balance 822 100 480 Intake: Oral 822 100 480 Other: Voiding Method Toilet # Voids 2 1 2 - Exam Limitations: no limitations General appearance: alert, in no apparent distress, does get short of breath activity and exertion Head exam: Unremarkable and normal Eye exam: normal appearance, PERRL ENT exam: normal oropharynx Neck exam: Mild prominence reticular veins were seen, no significant jugular vein is distention no bruits present Respiratory exam: Coarse breath sounds, bilateral rales (Right base), rhonchi Cardiovascular Exam: regular rate, normal rhythm, no gallop rub or murmur GI/Abdominal exam: soft. Absent: tenderness Extremities exam: normal inspection. Absent: pedal edema, calf tenderness Neurological exam: alert, oriented 3 no focal neurological deficit moving all 4 extremities Psychiatric exam: normal affect, normal mood Skin exam: normal color - Labs CBC & Chem 7: 10/13/17 07:36 10/13/17 07:36 Labs: Abnormal Lab Results - Last 24 Hours (Table) 10/13/17 10/13/17 10/13/17 Range/Units 07:23 07:36 07:36 WBC 14.0 H (3.8-10.6) k/uL RBC 3.53 L (3.80-5.40) m/uL MCV 102.5 H (80.0-100.0) fL Neutrophils # 12.0 H (1.3-7.7) k/uL Sodium 135 L (137-145) mmol/L Carbon Dioxide 21 L (22-30) mmol/L BUN 50 H (7-17) mg/dL Glucose 136 H (74-99) mg/dL POC Glucose (mg/dL) 131 H (75-99) mg/dL Calcium 7.8 L (8.4-10.2) mg/dL AST 42 H (14-36) U/L Total Protein 4.8 L (6.3-8.2) g/dL Albumin 2.1 L (3.5-5.0) g/dL 10/13/17 Range/Units 12:02 WBC (3.8-10.6) k/uL RBC (3.80-5.40) m/uL MCV (80.0-100.0) fL Neutrophils # (1.3-7.7) k/uL Sodium (137-145) mmol/L Carbon Dioxide (22-30) mmol/L BUN (7-17) mg/dL Glucose (74-99) mg/dL POC Glucose (mg/dL) 112 H (75-99) mg/dL Calcium (8.4-10.2) mg/dL AST (14-36) U/L Total Protein (6.3-8.2) g/dL Albumin (3.5-5.0) g/dL Microbiology - Last 24 Hours (Table) 10/12/17 07:47 Blood Culture - Preliminary Blood No Growth after 24 hours 10/11/17 15:45 Gram Stain - Final Sputum Sputum Culture - Final 10/11/17 11:52 Blood Culture Gram Stain - Preliminary Blood Blood Culture - Preliminary Streptococcus pneumoniae Assessment and Plan Assessment: Severe sepsis Bilateral pneumonia Acute hypoxic respirator failure Severe COPD Acute renal failure related to pneumonia dehydration and likely acute tubular necrosis related to that Severe and significant hyponatremia Hypertension hypertensive cardiovascular disease Extensive history of smoking and nicotine use Plan: Broad-spectrum antibiotic IV steroids Breathing treatments Gentle rehydration Patient has been consult educated by about smoking cessation Deep breathing exercise incentive spirometry Increase activity as tolerated Monitor renal functions and sodium level closely Patient would require follow up on outpatient basis for COPD evaluation therapy and follow up on bilateral pulmonary infiltrate, in case if infiltrate do not resolve and patient would require bronchial biopsy and bronchoscopy Further recommendations pending plan of care as per clinical response of patient Time with Patient: Greater than 30
[2017-10-13 17:43] LABS: Glucose,Whole Blood 131 mg/dL (75-99)
[2017-10-13] MEDS: FAMOTIDINE 20 MG TAB PO SCH (17:56)
[2017-10-13 20:46] LABS: Glucose,Whole Blood 227 mg/dL (75-99)
--- NOTE | 2017-10-14 03:12 | PN ---
PROGRESS NOTE DATE OF SERVICE: 10/13/2017. REASON FOR FOLLOWUP: Pneumonia with bacteremia. INTERVAL HISTORY: The patient overall feels better and has improved. The patient denies having any chest pain. She continues to complain of some shortness of breath. She did have a cough and bringing up some sputum. No nausea, no vomiting. No abdominal pain. No diarrhea. EXAMINATION: Blood pressure 134/77 with a pulse of 79, temperature 97.7. She is 95% on 2 L nasal cannula. General description is an elderly female up in the chair in no distress. Respiratory system: Unlabored breathing, decreased to the patient being on the right side. HEART: S1, S2. Regular rate and rhythm. Abdomen soft, no tenderness. Extremities: No edema of the feet. LABS: Hemoglobin 12.1, white count 36301, BUN of 15, creatinine 0.83. Blood culture with strep pneumo sensitive pathogen. DIAGNOSTIC IMPRESSION AND PLAN: Patient with multifocal pneumonia secondary to streptococcus pneumonia with secondary bacteremia. The organism is sensitive pathogen. She will continue with Rocephin and Levaquin and adjust antibiotics further based on clinical response. Continue supportive care. MMODL / IJN: [id number] /
[2017-10-14 06:23] LABS: HIV AB P24 Non-Reactive (Non-Reactive); HIV P24 AG Non-Reactive (Non-Reactive)
[2017-10-14] MEDS: methylPREDNISolone SOD SUCCI 125 MG/2 ML VIAL IV SCH (06:45)
[2017-10-14] MEDS: LEVOTHYROXINE 50 MCG TAB PO SCH (06:46)
[2017-10-14 07:04] LABS: Glucose,Whole Blood 136 mg/dL (75-99)
[2017-10-14] MEDS: IPRATROPIUM-ALBUTEROL 3 ML NEB INHALATION SCH ×4 (08:41→20:50)
[2017-10-14] MEDS: DOCUSATE 100 MG CAP PO SCH ×2 (08:41→21:29)
[2017-10-14] MEDS: cefTRIAXone IN SWFI 2,000 MG/20 ML SYRINGE IVP SCH (08:41)
[2017-10-14] MEDS: HEPARIN SODIUM,PORCINE 5,000 UNIT/ML 1 ML VIAL SQ SCH ×2 (08:41→20:14)
[2017-10-14] MEDS: FAMOTIDINE 20 MG TAB PO SCH ×2 (08:41→20:14)
[2017-10-14] MEDS: guaiFENesin 600 MG TABLET.ER PO SCH ×2 (08:41→20:14)
[2017-10-14] MEDS: BUDESONIDE 0.5 MG/2 ML NEBU INHALATION SCH ×2 (08:41→20:50)
[2017-10-14] MEDS ORDERED: LEVOFLOXACIN 750MG-D5W PMX 750 MG in DEXTROSE/WATER 1 150ML.BAG IVPB SCH (09:00)
[2017-10-14 09:15] LABS: Basophils % (A) 0 %; Eosinophils % (A) 0 %; HCT 33.3 % (34.0-46.0); HGB 10.9 gm/dL (11.4-16.0); Lymphocytes # (A) 1.2 k/uL (1.0-4.8); Lymphocytes % (A) 9 %; MCH 33.8 pg (25.0-35.0); MCHC 32.9 g/dL (31.0-37.0); MCV 102.9 fL (80.0-100.0); Macrocytosis Slight; Mean Platelet Volume 7.6; Monocytes # (A) 0.5 k/uL (0-1.0); Monocytes % (A) 4 %; Neutrophils % (A) 85 %; Platelet Count 465 k/uL (150-450); RBC 3.23 m/uL (3.80-5.40); RDW 13.8 % (11.5-15.5)
[2017-10-14 09:30] LABS: ALT 47 U/L (9-52); AST 43 U/L (14-36); Alkaline Phosphatase 93 U/L (38-126); Anion Gap 8 mmol/L; Blood Urea Nitrogen 36 mg/dL (7-17); Calcium 7.9 mg/dL (8.4-10.2); Carbon Dioxide 21 mmol/L (22-30); Chloride 106 mmol/L (98-107); Glucose 122 mg/dL (74-99); Potassium 4.5 mmol/L (3.5-5.1); Sodium 135 mmol/L (137-145); Total Bilirubin 0.5 mg/dL (0.2-1.3); Total Protein 4.5 g/dL (6.3-8.2)
[2017-10-14] MEDS ORDERED: LACTULOSE 20 GM/30 ML CUP PO ONE (11:25)
--- NOTE | 2017-10-14 11:30 | P.PN ---
Subjective Progress Note Date: 10/14/17 This is a 57-year-old female, patient of Dr. Howell. She has known past medical history of COPD, hypertension, hypothyroidism and nicotine dependence. Patient reports to the emergency room with complaints of worsening shortness of breath and productive cough for one week. Chest x-ray on admission showed patchy bilateral infiltrates worse on the right than the left. White count on admission 31.6 lactic acid 1.0. She was started on IV antibiotics Azactam and Levaquin in the ER. Pulmonary service and infectious disease consulted. Sputum culture pending. Influenza screen negative. Patient had a computed tomography scan of the chest showing multifocal infiltrates right greater than left and trace right pleural effusion. Patient was also started on IV steroids and nebulizer treatments in the ER. Patient had evidence of hyponatremia with a sodium of 123 inches, 134 with IV fluids. Also evidence of acute kidney injury with creatinine of 1.7 which is improved to 1.35. Patient also had some hypotension in the ER which improved with IV fluids. Last blood pressure is 126 /69. Patient is having chest pain with her cough. Denies any nausea or vomiting, denies any fever or chills or sweats. Denies any urinary symptoms. Was complaining of some constipation did have a small hard bowel movement this morning. She is drinking prune juice and Colace has been added. Patient is also currently on 3 L nasal cannula satting at 94%. She does not use oxygen at home. 10/13/2017 patient reports that she feels like her cough is getting stuck now and is unable to produce the sputum. Recent echo has been added. Did have some shortness of breath with ambulating to the restroom without her oxygen. She is followed by infectious disease and pulmonary service. Denies any chest pain. Denies any nausea vomiting. Reports having a small bowel movement yesterday. Denies any burning with urination. On 10/14/2017 patient is alert and oriented 3 she is sitting up in a chair she is complaining of cough and shortness of breath she is complaining of constipation otherwise she denies any complaints there is no chest pain no nausea or vomiting no abdominal pain and no urinary symptoms Objective - Vital Signs Vital signs: Vital Signs Temp 98.6 F 10/14/17 05:55 Pulse 76 10/14/17 08:56 Resp 20 10/14/17 05:55 BP 117/74 04/18/18 05:55 Pulse Ox 95 10/14/17 05:55 Intake & Output 10/13/17 10/14/17 10/14/17 18:59 06:59 18:59 Intake Total 480 Balance 480 Intake: Oral 480 Other: # Voids 2 4 - Exam Head normocephalic and atraumatic Neck supple no JVD no goiter Lungs diminished bilaterally no wheezing few crackles right more than left Heart regular rate and rhythm S1-S2, no rub or gallop Abdomen is soft nontender nondistended positive bowel sounds no hepatosplenomegaly Extremities no edema no cyanosis or clubbing Neuro alert and orientated to 3. No gross focal deficit - Labs CBC & Chem 7: 10/14/17 07:56 10/14/17 07:56 Labs: Abnormal Lab Results - Last 24 Hours (Table) 10/13/17 10/13/17 10/13/17 Range/Units 12:02 16:58 20:45 WBC (3.8-10.6) k/uL RBC (3.80-5.40) m/uL Hgb (11.4-16.0) gm/dL Hct (34.0-46.0) % MCV (80.0-100.0) fL Plt Count (150-450) k/uL Neutrophils # (1.3-7.7) k/uL Sodium (137-145) mmol/L Carbon Dioxide (22-30) mmol/L BUN (7-17) mg/dL Glucose (74-99) mg/dL POC Glucose (mg/dL) 112 H 131 H 227 H (75-99) mg/dL Calcium (8.4-10.2) mg/dL AST (14-36) U/L Total Protein (6.3-8.2) g/dL Albumin (3.5-5.0) g/dL 10/14/17 10/14/17 10/14/17 Range/Units 07:02 07:56 07:56 WBC 13.0 H (3.8-10.6) k/uL RBC 3.23 L (3.80-5.40) m/uL Hgb 10.9 L (11.4-16.0) gm/dL Hct 33.3 L (34.0-46.0) % MCV 102.9 H (80.0-100.0) fL Plt Count 465 H (150-450) k/uL Neutrophils # 11.0 H (1.3-7.7) k/uL Sodium 135 L (137-145) mmol/L Carbon Dioxide 21 L (22-30) mmol/L BUN 36 H (7-17) mg/dL Glucose 122 H (74-99) mg/dL POC Glucose (mg/dL) 136 H (75-99) mg/dL Calcium 7.9 L (8.4-10.2) mg/dL AST 43 H (14-36) U/L Total Protein 4.5 L (6.3-8.2) g/dL Albumin 2.0 L (3.5-5.0) g/dL Microbiology - Last 24 Hours (Table) 10/12/17 07:47 Blood Culture - Preliminary Blood No Growth after 48 hours 10/11/17 11:52 Blood Culture Gram Stain - Final Blood Blood Culture - Final Streptococcus pneumoniae 10/11/17 15:45 Gram Stain - Final Sputum Sputum Culture - Final Assessment and Plan Plan: 1. Acute hypoxic respiratory failure secondary pneumonia and COPD exacerbation 2. Bilateral pneumonia right greater than left with sepsis present on admission : Sputum culture showing normal nisreen. Infectious disease and pulmonary service are following. Patient is currently on Rocephin and Levaquin. Add Mucinex 3. Acute COPD exacerbation: Continue with IV Solu-Medrol and bronchodilators 4. Acute kidney injury: Likely related to dehydration and pneumonia. Improved with IV fluids. Creatinine has now normalized 5. Hyponatremia sodium 123 on admission: Sodium level improving now up to 135. Also completely related to patient's dehydration or daily beer intake. Repeat sodium level in a.m. no evidence of malignancy on CAT scan 6. Hypothyroidism continue Synthroid 7. Nicotine dependence discussed smoking cessation. At this time patient is refusing nicotine patch. 8. Mildly elevated AST and alk phos: No abdominal pain. Likely related to patient's alcohol use. Levels are trending down, continue to monitor 9. Alcohol dependence: Patient reporting she drinks 1 beer Daily. She's been placed on the CIWA protocol with multivitamin and thiamine 10. Essential hypertension: Patient did have hypotension on admission. Improved with IV fluids. Lisinopril on hold. 11. One positive blood culture with Streptococcus pneumonia. Repeat blood culture negative. We'll await further infectious disease recommendations GI prophylaxis Pepcid and DVT prophylaxis subcu heparin Consult physical therapy Today patient was seen and examined labs and x-ray reports and medication were reviewed She is complaining of constipation a dose of lactulose was added Continue current medications otherwise
[2017-10-14 11:41] LABS: Glucose,Whole Blood 136 mg/dL (75-99)
--- NOTE | 2017-10-14 11:57 | PN ---
PROGRESS NOTE DATE OF SERVICE: 10/14/2017 REASON FOR FOLLOWUP: Strep pneumo bacteremia pneumonia. INTERVAL HISTORY: The patient is afebrile. She is currently breathing slightly comfortably. She did have some cough but not bringing up any of the sputum. The patient denies having any nausea, vomiting. No abdominal pain or any diarrhea. PHYSICAL EXAMINATION: Blood pressure is 117/74 with a pulse of 75, temperature 98.6. She is 95% on 2 L nasal cannula. General description is a middle-aged female, up in the bed in no distress. RESPIRATORY SYSTEM: Unlabored breathing, decreased breath sounds in the base, with no significant wheeze or rales today. HEART: S1, S2. Regular rate and rhythm. ABDOMEN: Soft, no tenderness. LABS: Hemoglobin is 10.8, white count of 13, with a BUN of 36, creatinine 0.65. Blood culture with strep pneumo that is a sensitive pathogen. DIAGNOSTIC IMPRESSION AND PLAN: Patient with step pneumo bacteremia secondary to pneumonia. Repeat blood culture has been negative. Patient to continue with Rocephin and Levaquin and if the patient continues to improve, hopefully will finish therapy with oral antibiotics. Continue supportive care. MMODL / IJN: [id number] /
--- NOTE | 2017-10-14 11:57 | P.PN ---
Subjective Progress Note Date: 10/14/17 Principal diagnosis: Severe sepsis, bilateral pneumonia, acute hypoxic respirator failure, severe COPD, acute renal failure, electrolyte imbalance with severe hypernatremia, 10/14/2017, patient seen and evaluated examined during the rounds she is sitting upright in the chair she still short of breath on activity and exertion still continued to have issues associated with the right-sided chest wall pain related to old rib fractures and clavicle fracture happened about a year ago, she has dry nonproductive cough with dyspnea on exertion severity or shortness breath is improved but has not been back to baseline, patient has been consult educated about smoking cessation at length, her blood cultures positive for Streptococcus pneumonia on October 11 repeat culture performed next day has been negative so far, sputum has been negative as well, her white cell count shows a slow decline is down to 13,000, renal functions have improved and normal was back to baseline is still have some component of prerenal azotemia though, her HIV testing including influenza and A and B are both negative 10/13/2017, patient seen eval examined during the rounds clinically patient remained short of breath but severity has improved still have intermittent cough congestion patient remains on broad-spectrum antibiotics breathing treatment and steroids last chest x-ray performed yesterday reviewed and compared with the prior x-rays other radiographic data reviewed as well care plan discussed with the patient at length, patient has been consult about smoking cessation Ms. Walker is a 57-year-old female with extensive history of smoking and nicotine use she has not been feeling well with progressive increased shortness breath cough congestion for over 7 days to a week duration patient has been treated with on outpatient setting without any significant relief due to persistent problem increasing breathing difficulty decided to come into emergency department for further evaluation and intervention and treatment she denies any hemoptysis does have cough which is associated with thick sputum production her appetite has been poor she has lost 15-20 pounds in the last couple of weeks patient has been being treated with IV steroids breathing treatments antibiotics patient also had the recent computed tomography scan performed which shows patchy bilateral infiltrate laboratory data significant for acute renal failure significant hyponatremia and severe leukocytosis in addition patient has been hypoxic as well and hypotensive requiring fluid resuscitation emergency department lactic acid was however normal Chest x-ray on admission showed patchy bilateral infiltrates worse on the right than the left. White count on admission 31.6 lactic acid 1.0. She was started on IV antibiotics Azactam and Levaquin in the ER. Sputum culture pending. Influenza screen negative. Patient had a computed tomography scan of the chest showing multifocal infiltrates right greater than left and trace right pleural effusion. Patient was also started on IV steroids and nebulizer treatments in the ER. Patient had evidence of hyponatremia with a sodium of 123 inches, 134 with IV fluids. Patient also has evidence of acute kidney injury with creatinine of 1.7 which is improved to 1.35. Patient also had some hypotension in the ER which improved with IV fluids. Last blood pressure is 126/69. Patient is having chest pain with her cough. On specific questioning patient denies any nausea or vomiting, denies any fever or chills or sweats. Denies any urinary symptoms. Was complaining of some constipation did have a small hard bowel movement this morning. She is drinking prune juice and Colace has been added. Patient is also currently on 3 L nasal cannula satting at 94%. She does not use oxygen at home. He does not have a nebulizer machine she is still a active smoker has been smoking about a week ago. She uses albuterol as needed MDI along with Qvar without any significant relief Objective - Vital Signs Vital signs: Vital Signs Temp 98.6 F 10/14/17 05:55 Pulse 76 10/14/17 08:56 Resp 20 10/14/17 05:55 BP 117/74 10/14/17 05:55 Pulse Ox 95 10/14/17 05:55 Intake & Output 10/13/17 10/14/17 10/14/17 18:59 06:59 18:59 Intake Total 480 Balance 480 Intake: Oral 480 Other: # Voids 2 4 - Exam Limitations: no limitations General appearance: alert, in mild respiratory distress, does get short of breath activity and exertion Head exam: Unremarkable and normal Eye exam: normal appearance, PERRL ENT exam: normal oropharynx Neck exam: Mild prominence neck veins were seen, no significant jugular vein is distention no bruits present Respiratory exam: Coarse breath sounds, bilateral rales (Right base), rhonchi Cardiovascular Exam: regular rate, normal rhythm, no gallop rub or murmur GI/Abdominal exam: soft. Absent: tenderness Extremities exam: normal inspection. Absent: pedal edema, calf tenderness Neurological exam: alert, oriented 3 no focal neurological deficit moving all 4 extremities Psychiatric exam: normal affect, normal mood Skin exam: normal color - Labs CBC & Chem 7: 10/14/17 07:56 10/14/17 07:56 Labs: Abnormal Lab Results - Last 24 Hours (Table) 10/13/17 10/13/17 10/13/17 Range/Units 12:02 16:58 20:45 WBC (3.8-10.6) k/uL RBC (3.80-5.40) m/uL Hgb (11.4-16.0) gm/dL Hct (34.0-46.0) % MCV (80.0-100.0) fL Plt Count (150-450) k/uL Neutrophils # (1.3-7.7) k/uL Sodium (137-145) mmol/L Carbon Dioxide (22-30) mmol/L BUN (7-17) mg/dL Glucose (74-99) mg/dL POC Glucose (mg/dL) 112 H 131 H 227 H (75-99) mg/dL Calcium (8.4-10.2) mg/dL AST (14-36) U/L Total Protein (6.3-8.2) g/dL Albumin (3.5-5.0) g/dL 10/14/17 10/14/17 10/14/17 Range/Units 07:02 07:56 07:56 WBC 13.0 H (3.8-10.6) k/uL RBC 3.23 L (3.80-5.40) m/uL Hgb 10.9 L (11.4-16.0) gm/dL Hct 33.3 L (34.0-46.0) % MCV 102.9 H (80.0-100.0) fL Plt Count 465 H (150-450) k/uL Neutrophils # 11.0 H (1.3-7.7) k/uL Sodium 135 L (137-145) mmol/L Carbon Dioxide 21 L (22-30) mmol/L BUN 36 H (7-17) mg/dL Glucose 122 H (74-99) mg/dL POC Glucose (mg/dL) 136 H (75-99) mg/dL Calcium 7.9 L (8.4-10.2) mg/dL AST 43 H (14-36) U/L Total Protein 4.5 L (6.3-8.2) g/dL Albumin 2.0 L (3.5-5.0) g/dL 10/14/17 Range/Units 11:39 WBC (3.8-10.6) k/uL RBC (3.80-5.40) m/uL Hgb (11.4-16.0) gm/dL Hct (34.0-46.0) % MCV (80.0-100.0) fL Plt Count (150-450) k/uL Neutrophils # (1.3-7.7) k/uL Sodium (137-145) mmol/L Carbon Dioxide (22-30) mmol/L BUN (7-17) mg/dL Glucose (74-99) mg/dL POC Glucose (mg/dL) 136 H (75-99) mg/dL Calcium (8.4-10.2) mg/dL AST (14-36) U/L Total Protein (6.3-8.2) g/dL Albumin (3.5-5.0) g/dL Microbiology - Last 24 Hours (Table) 10/12/17 07:47 Blood Culture - Preliminary Blood No Growth after 48 hours 10/11/17 11:52 Blood Culture Gram Stain - Final Blood Blood Culture - Final Streptococcus pneumoniae 10/11/17 15:45 Gram Stain - Final Sputum Sputum Culture - Final Assessment and Plan Assessment: Severe sepsis Streptococcal bacteremia and pneumonia Bilateral pneumonia Acute hypoxic respirator failure Severe COPD Acute renal failure related to pneumonia dehydration and likely acute tubular necrosis related to that, renal functions continued to improve Severe and significant hyponatremia, continued to improve Hypertension hypertensive cardiovascular disease Extensive history of smoking and nicotine use Plan: Broad-spectrum antibiotic, continue IV Rocephin however Levaquin can be switched to oral IV steroids, we'll start tapering it down Breathing treatments Gentle rehydration Patient has been consult educated by about smoking cessation Deep breathing exercise incentive spirometry Increase activity as tolerated Monitor renal functions and sodium level closely Patient would require follow up on outpatient basis for COPD evaluation therapy and follow up on bilateral pulmonary infiltrate, in case if infiltrate do not resolve and patient would require bronchial biopsy and bronchoscopy Further recommendations pending plan of care as per clinical response of patient Time with Patient: Greater than 30
[2017-10-14] MEDS: MULTIVITAMINS, THERA 1 EACH TAB PO SCH (12:22)
[2017-10-14] MEDS: THIAMINE 100 MG TAB PO SCH ×2 (12:22→17:46)
[2017-10-14 17:11] LABS: Glucose,Whole Blood 128 mg/dL (75-99)
[2017-10-14] MEDS: methylPREDNISolone SOD SUCCI 40 MG/ML 1 ML VIAL IV SCH ×2 (17:46→23:12)
[2017-10-14] MEDS ORDERED: MAGNESIUM HYDROXIDE 2,400 MG/10 ML CUP PO PRN (18:48)
[2017-10-14 20:22] LABS: Glucose,Whole Blood 178 mg/dL (75-99)
[2017-10-14] MEDS: SODIUM CHLORIDE 0.9% 1,000 ML IV SCH (21:49)
[2017-10-15] MEDS: LEVOTHYROXINE 50 MCG TAB PO SCH (05:57)
[2017-10-15 07:33] LABS: Glucose,Whole Blood 107 mg/dL (75-99)
[2017-10-15] MEDS: BUDESONIDE 0.5 MG/2 ML NEBU INHALATION SCH ×2 (08:23→20:06)
[2017-10-15] MEDS: IPRATROPIUM-ALBUTEROL 3 ML NEB INHALATION SCH ×4 (08:26→20:06)
[2017-10-15 08:41] LABS: ALT 71 U/L (9-52); AST 60 U/L (14-36); Albumin 2.2 g/dL (3.5-5.0); Alkaline Phosphatase 87 U/L (38-126); Anion Gap 7 mmol/L; Blood Urea Nitrogen 22 mg/dL (7-17); Calcium 8.3 mg/dL (8.4-10.2); Carbon Dioxide 22 mmol/L (22-30); Chloride 106 mmol/L (98-107); Glucose 90 mg/dL (74-99); Potassium 4.9 mmol/L (3.5-5.1); Sodium 135 mmol/L (137-145); Total Bilirubin 0.6 mg/dL (0.2-1.3); Total Protein 4.7 g/dL (6.3-8.2)
[2017-10-15 08:50] LABS: Basophils % (A) 0 %; Eosinophils % (A) 0 %; HCT 35.6 % (34.0-46.0); HGB 11.9 gm/dL (11.4-16.0); Lymphocytes # (A) 1.7 k/uL (1.0-4.8); Lymphocytes % (A) 13 %; MCH 34.9 pg (25.0-35.0); MCHC 33.4 g/dL (31.0-37.0); MCV 104.5 fL (80.0-100.0); Macrocytosis Slight; Mean Platelet Volume 7.7; Monocytes # (A) 0.5 k/uL (0-1.0); Monocytes % (A) 4 %; Neutrophils % (A) 82 %; Platelet Count 533 k/uL (150-450); RDW 13.9 % (11.5-15.5); WBC 13.5 k/uL (3.8-10.6)
[2017-10-15] MEDS: guaiFENesin 600 MG TABLET.ER PO SCH ×2 (09:35→21:24)
[2017-10-15] MEDS: methylPREDNISolone SOD SUCCI 40 MG/ML 1 ML VIAL IV SCH ×2 (09:35→15:12)
[2017-10-15] MEDS: FAMOTIDINE 20 MG TAB PO SCH ×2 (09:35→21:23)
[2017-10-15] MEDS: DOCUSATE 100 MG CAP PO SCH ×2 (09:35→21:24)
[2017-10-15] MEDS: HEPARIN SODIUM,PORCINE 5,000 UNIT/ML 1 ML VIAL SQ SCH ×2 (09:35→21:23)
[2017-10-15] MEDS: cefTRIAXone IN SWFI 2,000 MG/20 ML SYRINGE IVP SCH (09:35)
[2017-10-15] MEDS: LEVOFLOXACIN 500 MG TAB PO SCH (09:36)
[2017-10-15] MEDS: LISINOPRIL 10 MG TAB PO SCH (11:09)
[2017-10-15] MEDS: NYSTATIN 100,000 UNIT/ML SUSP 500,000 UNIT/5 ML CUP PO SCH ×4 (11:09→21:54)
[2017-10-15] MEDS: MULTIVITAMINS, THERA 1 EACH TAB PO SCH (11:09)
[2017-10-15] MEDS: THIAMINE 100 MG TAB PO SCH ×2 (11:09→16:28)
--- NOTE | 2017-10-15 11:24 | P.PN ---
Subjective Progress Note Date: 10/15/17 This is a 57-year-old female, patient of Dr. Howell. She has known past medical history of COPD, hypertension, hypothyroidism and nicotine dependence. Patient reports to the emergency room with complaints of worsening shortness of breath and productive cough for one week. Chest x-ray on admission showed patchy bilateral infiltrates worse on the right than the left. White count on admission 31.6 lactic acid 1.0. She was started on IV antibiotics Azactam and Levaquin in the ER. Pulmonary service and infectious disease consulted. Sputum culture pending. Influenza screen negative. Patient had a computed tomography scan of the chest showing multifocal infiltrates right greater than left and trace right pleural effusion. Patient was also started on IV steroids and nebulizer treatments in the ER. Patient had evidence of hyponatremia with a sodium of 123 inches, 134 with IV fluids. Also evidence of acute kidney injury with creatinine of 1.7 which is improved to 1.35. Patient also had some hypotension in the ER which improved with IV fluids. Last blood pressure is 126 /69. Patient is having chest pain with her cough. Denies any nausea or vomiting, denies any fever or chills or sweats. Denies any urinary symptoms. Was complaining of some constipation did have a small hard bowel movement this morning. She is drinking prune juice and Colace has been added. Patient is also currently on 3 L nasal cannula satting at 94%. She does not use oxygen at home. 10/13/2017 patient reports that she feels like her cough is getting stuck now and is unable to produce the sputum. Recent echo has been added. Did have some shortness of breath with ambulating to the restroom without her oxygen. She is followed by infectious disease and pulmonary service. Denies any chest pain. Denies any nausea vomiting. Reports having a small bowel movement yesterday. Denies any burning with urination. 10/15/2017 patient still having cough and shortness of breath. Patient still requiring oxygen with 2 L at 96%. Also complaining of some oral thrush. Started on nystatin swish and swallow. HIV screen was negative. Reports having bowel movement after lactulose. Denies any chest pain. Complaining of some sinus congestion. On Mucinex and antibiotics Objective - Vital Signs Vital signs: Vital Signs Temp 99.1 F 10/15/17 05:30 Pulse 80 10/15/17 08:40 Resp 18 10/15/17 05:30 BP 145/82 10/15/17 05:30 Pulse Ox 96 10/15/17 08:26 Intake & Output 10/14/17 10/15/17 10/15/17 18:59 06:59 18:59 Other: Voiding Method Toilet # Voids 1 2 # Bowel Movements 1 1 - Exam Head normocephalic Neck supple Lungs diminished bilaterally Heart regular rate and rhythm S1-S2, no rub or gallop Abdomen is soft nontender nondistended positive bowel sounds no hepatosplenomegaly Extremities no edema Neuro alert and orientated to 3. No hand tremor. - Labs CBC & Chem 7: 10/15/17 07:46 10/15/17 07:46 Labs: Abnormal Lab Results - Last 24 Hours (Table) 10/14/17 10/14/17 10/14/17 Range/Units 11:39 17:03 20:21 WBC (3.8-10.6) k/uL RBC (3.80-5.40) m/uL MCV (80.0-100.0) fL Plt Count (150-450) k/uL Neutrophils # (1.3-7.7) k/uL Sodium (137-145) mmol/L BUN (7-17) mg/dL POC Glucose (mg/dL) 136 H 128 H 178 H (75-99) mg/dL Calcium (8.4-10.2) mg/dL AST (14-36) U/L ALT (9-52) U/L Total Protein (6.3-8.2) g/dL Albumin (3.5-5.0) g/dL 10/15/17 10/15/17 10/15/17 Range/Units 07:22 07:46 07:46 WBC 13.5 H (3.8-10.6) k/uL RBC 3.40 L (3.80-5.40) m/uL MCV 104.5 H (80.0-100.0) fL Plt Count 533 H (150-450) k/uL Neutrophils # 11.0 H (1.3-7.7) k/uL Sodium 135 L (137-145) mmol/L BUN 22 H (7-17) mg/dL POC Glucose (mg/dL) 107 H (75-99) mg/dL Calcium 8.3 L (8.4-10.2) mg/dL AST 60 H (14-36) U/L ALT 71 H (9-52) U/L Total Protein 4.7 L (6.3-8.2) g/dL Albumin 2.2 L (3.5-5.0) g/dL Microbiology - Last 24 Hours (Table) 10/12/17 07:47 Blood Culture - Preliminary Blood No Growth after 72 hours Assessment and Plan Assessment: 1. Acute hypoxic respiratory failure secondary pneumonia and COPD exacerbation 2. Bilateral pneumonia right greater than left with sepsis present on admission : Sputum culture showing normal nisreen. Infectious disease and pulmonary service are following. Patient is currently on Rocephin and Levaquin. Add Mucinex 3. Acute COPD exacerbation: Continue with IV Solu-Medrol and bronchodilators 4. Acute kidney injury: Likely related to dehydration and pneumonia. Improved with IV fluids. Creatinine has now normalized 5. Hyponatremia sodium 123 on admission: Sodium level improving now up to 135. Also completely related to patient's dehydration or daily beer intake. Repeat sodium level in a.m. no evidence of malignancy on CAT scan. Hep-Lock IV fluids 6. Hypothyroidism continue Synthroid 7. Nicotine dependence discussed smoking cessation. At this time patient is refusing nicotine patch. 8. Mildly elevated AST and alk phos: No abdominal pain. Likely related to patient's alcohol use. Levels are trending down, continue to monitor 9. Alcohol dependence: Patient reporting she drinks 1 beer Daily. She's been placed on the CIWA protocol with multivitamin and thiamine 10. Essential hypertension: Patient did have hypotension on admission. Improved with IV fluids. Blood pressures have improved restart lisinopril 11. Strep pneumonia bacteremia secondary to pneumonia: Followed by infectious disease. Repeat blood cultures negative. Continue with antibiotics. 12. Oral thrush start nystatin swish and swallow 13. Constipation resolved GI prophylaxis Pepcid and DVT prophylaxis subcu heparin Consult physical therapy. Encouraged patient to increase activity I performed an examination of the patient and discussed their management with the physician Echocardiographer. I have reviewed the Physician Echocardiographer's notes and agree with the documented findings and plan of care
[2017-10-15 12:17] LABS: Glucose,Whole Blood 108 mg/dL (75-99)
--- NOTE | 2017-10-15 16:01 | PN ---
PROGRESS NOTE DATE OF SERVICE: 10/15/2017. REASON FOR FOLLOWUP: Strep pneumonia with bacteremia. INTERVAL HISTORY: The patient is afebrile. Her pain has slightly improved. Denies having chest pain. Cough is mostly dry in nature. No abdominal pain or any diarrhea. EXAMINATION: Blood pressure 145/82 with a pulse of 74, temperature 99.1. She is 93% on 2 L nasal cannula. General description is a middle aged female up in the bed in no distress. RESPIRATORY SYSTEM: Unlabored breathing with decreased breath sounds in the base, with no wheeze. HEART: S1, S2. Regular rate and rhythm. ABDOMEN: Soft, no tenderness. LABS: White count 13.5 with a BUN of 22, creatinine 0.53. Blood culture repeat has been negative. DIAGNOSTIC IMPRESSION AND PLAN: Patient with strep pneumo/bacteremia secondary to the pneumonia with repeat blood culture negative, for sensitive pathogen. Currently on Rocephin and Levaquin. Plan to finish therapy with p.o. Ceftin on discharge for another 10 days with close outpatient followup. MMODL / IJN: [id number] /
[2017-10-15 17:35] LABS: Glucose,Whole Blood 152 mg/dL (75-99)
[2017-10-15 20:57] LABS: Glucose,Whole Blood 169 mg/dL (75-99)
[2017-10-16] MEDS: methylPREDNISolone SOD SUCCI 40 MG/ML 1 ML VIAL IV SCH ×4 (00:08→23:26)
[2017-10-16] MEDS: LEVOTHYROXINE 50 MCG TAB PO SCH (06:25)
[2017-10-16 07:27] LABS: Glucose,Whole Blood 129 mg/dL (75-99)
[2017-10-16] MEDS: cefTRIAXone IN SWFI 2,000 MG/20 ML SYRINGE IVP SCH (08:46)
[2017-10-16] MEDS: THIAMINE 100 MG TAB PO SCH ×2 (08:47→17:00)
[2017-10-16] MEDS: guaiFENesin 600 MG TABLET.ER PO SCH ×2 (08:47→21:01)
[2017-10-16] MEDS: MULTIVITAMINS, THERA 1 EACH TAB PO SCH (08:47)
[2017-10-16] MEDS: NYSTATIN 100,000 UNIT/ML SUSP 500,000 UNIT/5 ML CUP PO SCH ×4 (08:47→21:39)
[2017-10-16] MEDS: FAMOTIDINE 20 MG TAB PO SCH ×2 (08:47→21:01)
[2017-10-16] MEDS: LEVOFLOXACIN 500 MG TAB PO SCH (08:48)
[2017-10-16] MEDS: LISINOPRIL 10 MG TAB PO SCH (08:48)
[2017-10-16] MEDS: HEPARIN SODIUM,PORCINE 5,000 UNIT/ML 1 ML VIAL SQ SCH ×2 (08:48→21:02)
[2017-10-16] MEDS: DOCUSATE 100 MG CAP PO SCH ×2 (08:48→21:01)
[2017-10-16] MEDS: BUDESONIDE 0.5 MG/2 ML NEBU INHALATION SCH ×2 (08:59→19:47)
[2017-10-16] MEDS: IPRATROPIUM-ALBUTEROL 3 ML NEB INHALATION SCH ×4 (08:59→19:47)
[2017-10-16 09:38] LABS: Basophils % (A) 0 %; Eosinophils % (A) 0 %; HGB 11.4 gm/dL (11.4-16.0); Lymphocytes # (A) 1.6 k/uL (1.0-4.8); Lymphocytes % (A) 16 %; MCH 33.3 pg (25.0-35.0); MCHC 31.7 g/dL (31.0-37.0); MCV 104.9 fL (80.0-100.0); Macrocytosis Moderate; Mean Platelet Volume 7.8; Monocytes # (A) 0.4 k/uL (0-1.0); Monocytes % (A) 4 %; Neutrophils # (A) 7.7 k/uL (1.3-7.7); Neutrophils % (A) 79 %; Platelet Count 556 k/uL (150-450); RBC 3.43 m/uL (3.80-5.40); WBC 9.7 k/uL (3.8-10.6)
[2017-10-16 10:16] LABS: ALT 59 U/L (9-52); AST 34 U/L (14-36); Albumin 2.2 g/dL (3.5-5.0); Alkaline Phosphatase 79 U/L (38-126); Anion Gap 7 mmol/L; Blood Urea Nitrogen 17 mg/dL (7-17); Calcium 7.9 mg/dL (8.4-10.2); Carbon Dioxide 25 mmol/L (22-30); Chloride 102 mmol/L (98-107); Glucose 88 mg/dL (74-99); Potassium 5.1 mmol/L (3.5-5.1); Sodium 134 mmol/L (137-145); Total Bilirubin 0.7 mg/dL (0.2-1.3); Total Protein 4.6 g/dL (6.3-8.2)
--- NOTE | 2017-10-16 12:36 | XR ---
EXAMINATION TYPE: XR chest 2V DATE OF EXAM: 10/16/2017 COMPARISON: Prior chest 10/12/2017 HISTORY: Pneumonia follow-up TECHNIQUE: Frontal and lateral views of the chest are obtained. FINDINGS: Bilateral airspace disease is improved somewhat in the interval. No evident pneumothorax. Small effusions are suspected. Heart size is stable. Old right-sided rib fractures are again noted. IMPRESSION: There is some improvement in aeration. Additional follow-up recommended. Small pleural e ffusions.
--- NOTE | 2017-10-16 14:11 | P.PN ---
Subjective Progress Note Date: 10/16/17 Principal diagnosis: Severe sepsis, bilateral pneumonia, acute hypoxic respirator failure, severe COPD, acute renal failure, electrolyte imbalance with severe hypernatremia, 10/16/2017, patient seen eval reexamined during the rounds clinically doing well awake and alert breathing comfortably would recommend to check pulse ox at room air if remains stable can be discharged home on oral antibiotics reading treatments and oral prednisone with follow-up on outpatient setting okay with ID services 10/15/2017, patient seen and evaluated examined today she is slightly better doing better in terms of breathing patient has been sleeping most of the day appetite is getting better her confusion has improved significantly as well 10/14/2017, patient seen and evaluated examined during the rounds she is sitting upright in the chair she still short of breath on activity and exertion still continued to have issues associated with the right-sided chest wall pain related to old rib fractures and clavicle fracture happened about a year ago, she has dry nonproductive cough with dyspnea on exertion severity or shortness breath is improved but has not been back to baseline, patient has been consult educated about smoking cessation at length, her blood cultures positive for Streptococcus pneumonia on October 11 repeat culture performed next day has been negative so far, sputum has been negative as well, her white cell count shows a slow decline is down to 13,000, renal functions have improved and normal was back to baseline is still have some component of prerenal azotemia though, her HIV testing including influenza and A and B are both negative 10/13/2017, patient seen eval examined during the rounds clinically patient remained short of breath but severity has improved still have intermittent cough congestion patient remains on broad-spectrum antibiotics breathing treatment and steroids last chest x-ray performed yesterday reviewed and compared with the prior x-rays other radiographic data reviewed as well care plan discussed with the patient at length, patient has been consult about smoking cessation Ms. Walker is a 57-year-old female with extensive history of smoking and nicotine use she has not been feeling well with progressive increased shortness breath cough congestion for over 7 days to a week duration patient has been treated with on outpatient setting without any significant relief due to persistent problem increasing breathing difficulty decided to come into emergency department for further evaluation and intervention and treatment she denies any hemoptysis does have cough which is associated with thick sputum production her appetite has been poor she has lost 15-20 pounds in the last couple of weeks patient has been being treated with IV steroids breathing treatments antibiotics patient also had the recent computed tomography scan performed which shows patchy bilateral infiltrate laboratory data significant for acute renal failure significant hyponatremia and severe leukocytosis in addition patient has been hypoxic as well and hypotensive requiring fluid resuscitation emergency department lactic acid was however normal Chest x-ray on admission showed patchy bilateral infiltrates worse on the right than the left. White count on admission 31.6 lactic acid 1.0. She was started on IV antibiotics Azactam and Levaquin in the ER. Sputum culture pending. Influenza screen negative. Patient had a computed tomography scan of the chest showing multifocal infiltrates right greater than left and trace right pleural effusion. Patient was also started on IV steroids and nebulizer treatments in the ER. Patient had evidence of hyponatremia with a sodium of 123 inches, 134 with IV fluids. Patient also has evidence of acute kidney injury with creatinine of 1.7 which is improved to 1.35. Patient also had some hypotension in the ER which improved with IV fluids. Last blood pressure is 126/69. Patient is having chest pain with her cough. On specific questioning patient denies any nausea or vomiting, denies any fever or chills or sweats. Denies any urinary symptoms. Was complaining of some constipation did have a small hard bowel movement this morning. She is drinking prune juice and Colace has been added. Patient is also currently on 3 L nasal cannula satting at 94%. She does not use oxygen at home. He does not have a nebulizer machine she is still a active smoker has been smoking about a week ago. She uses albuterol as needed MDI along with Qvar without any significant relief Objective - Vital Signs Vital signs: Vital Signs Temp 98.1 F 10/16/17 06:02 Pulse 86 10/16/17 12:00 Resp 16 10/16/17 12:00 BP 135/77 10/16/17 06:02 Pulse Ox 91 L 10/16/17 09:52 Intake & Output 10/15/17 10/16/17 10/16/17 18:59 06:59 18:59 Intake Total 300 Balance 300 Intake: Oral 300 Other: Voiding Method Toilet Toilet # Voids 2 2 - Exam Limitations: no limitations General appearance: alert, in mild respiratory distress, does get short of breath activity and exertion Head exam: Unremarkable and normal Eye exam: normal appearance, PERRL ENT exam: normal oropharynx Neck exam: Mild prominence neck veins were seen, no significant jugular vein is distention no bruits present Respiratory exam: Coarse breath sounds, bilateral rales (Right base), rhonchi Cardiovascular Exam: regular rate, normal rhythm, no gallop rub or murmur GI/Abdominal exam: soft. Absent: tenderness Extremities exam: normal inspection. Absent: pedal edema, calf tenderness Neurological exam: alert, oriented 3 no focal neurological deficit moving all 4 extremities Psychiatric exam: normal affect, normal mood Skin exam: normal color - Labs CBC & Chem 7: 10/16/17 08:34 10/16/17 08:34 Labs: Abnormal Lab Results - Last 24 Hours (Table) 10/15/17 10/15/17 10/16/17 Range/Units 17:10 20:51 07:25 RBC (3.80-5.40) m/uL MCV (80.0-100.0) fL Plt Count (150-450) k/uL Sodium (137-145) mmol/L Creatinine (0.52-1.04) mg/dL POC Glucose (mg/dL) 152 H 169 H 129 H (75-99) mg/dL Calcium (8.4-10.2) mg/dL ALT (9-52) U/L Total Protein (6.3-8.2) g/dL Albumin (3.5-5.0) g/dL 10/16/17 10/16/17 Range/Units 08:34 08:34 RBC 3.43 L (3.80-5.40) m/uL MCV 104.9 H (80.0-100.0) fL Plt Count 556 H (150-450) k/uL Sodium 134 L (137-145) mmol/L Creatinine 0.48 L (0.52-1.04) mg/dL POC Glucose (mg/dL) (75-99) mg/dL Calcium 7.9 L (8.4-10.2) mg/dL ALT 59 H (9-52) U/L Total Protein 4.6 L (6.3-8.2) g/dL Albumin 2.2 L (3.5-5.0) g/dL Microbiology - Last 24 Hours (Table) 10/12/17 07:47 Blood Culture - Preliminary Blood No Growth after 96 hours Assessment and Plan Assessment: Severe sepsis Streptococcal bacteremia and pneumonia Bilateral pneumonia Acute hypoxic respirator failure Severe COPD Acute renal failure related to pneumonia dehydration and likely acute tubular necrosis related to that, renal functions continued to improve Severe and significant hyponatremia, continued to improve Hypertension hypertensive cardiovascular disease Extensive history of smoking and nicotine use Plan: Broad-spectrum antibiotic, however they can be switched to oral IV steroids, continued to taper it down Breathing treatments Gentle rehydration Patient has been consult educated by about smoking cessation Deep breathing exercise incentive spirometry Increase activity as tolerated Monitor renal functions and sodium level closely homologue reviewed computed tomography scan and radiographic studies and laboratory data Further recommendations pending plan of care as per clinical response of patient Time with Patient: Greater than 30
--- NOTE | 2017-10-16 14:44 | P.PN ---
Subjective Progress Note Date: 10/16/17 This is a 57-year-old female, patient of Dr. Howell. She has known past medical history of COPD, hypertension, hypothyroidism and nicotine dependence. Patient reports to the emergency room with complaints of worsening shortness of breath and productive cough for one week. Chest x-ray on admission showed patchy bilateral infiltrates worse on the right than the left. White count on admission 31.6 lactic acid 1.0. She was started on IV antibiotics Azactam and Levaquin in the ER. Pulmonary service and infectious disease consulted. Sputum culture pending. Influenza screen negative. Patient had a computed tomography scan of the chest showing multifocal infiltrates right greater than left and trace right pleural effusion. Patient was also started on IV steroids and nebulizer treatments in the ER. Patient had evidence of hyponatremia with a sodium of 123 inches, 134 with IV fluids. Also evidence of acute kidney injury with creatinine of 1.7 which is improved to 1.35. Patient also had some hypotension in the ER which improved with IV fluids. Last blood pressure is 126 /69. Patient is having chest pain with her cough. Denies any nausea or vomiting, denies any fever or chills or sweats. Denies any urinary symptoms. Was complaining of some constipation did have a small hard bowel movement this morning. She is drinking prune juice and Colace has been added. Patient is also currently on 3 L nasal cannula satting at 94%. She does not use oxygen at home. 10/13/2017 patient reports that she feels like her cough is getting stuck now and is unable to produce the sputum. Recent echo has been added. Did have some shortness of breath with ambulating to the restroom without her oxygen. She is followed by infectious disease and pulmonary service. Denies any chest pain. Denies any nausea vomiting. Reports having a small bowel movement yesterday. Denies any burning with urination. On 10/14/2017 patient is alert and oriented 3 she is sitting up in a chair she is complaining of cough and shortness of breath she is complaining of constipation otherwise she denies any complaints there is no chest pain no nausea or vomiting no abdominal pain and no urinary symptoms 10/15/2017 patient still having cough and shortness of breath. Patient still requiring oxygen with 2 L at 96%. Also complaining of some oral thrush. Started on nystatin swish and swallow. HIV screen was negative. Reports having bowel movement after lactulose. Denies any chest pain. Complaining of some sinus congestion. On Mucinex and antibiotics 10/16/2017 patient still having cough and shortness of breath. Patient still requiring oxygen with 2 L at 96%. Also complaining of some oral thrush. Started on nystatin swish and swallow. HIV screen was negative. Patient had a CXR today and it shows improvement compared to 10/11/2017 Reports having bowel movement after lactulose. Denies any chest pain. Complaining of some sinus congestion. continue IV Rocephin and IV Levaquin Objective - Vital Signs Vital signs: Vital Signs Temp 98.1 F 10/16/17 06:02 Pulse 86 10/16/17 12:00 Resp 16 10/16/17 12:00 BP 135/77 10/16/17 06:02 Pulse Ox 91 L 10/16/17 09:52 Intake & Output 10/15/17 10/16/17 10/16/17 18:59 06:59 18:59 Intake Total 300 Balance 300 Intake: Oral 300 Other: Voiding Method Toilet Toilet # Voids 2 2 - Exam Head normocephalic and atraumatic Neck supple no JVD no goiter Lungs diminished bilaterally no wheezing few crackles right more than left Heart regular rate and rhythm S1-S2, no rub or gallop Abdomen is soft nontender nondistended positive bowel sounds no hepatosplenomegaly Extremities no edema no cyanosis or clubbing Neuro alert and orientated to 3. No gross focal deficit - Labs CBC & Chem 7: 10/16/17 08:34 10/16/17 08:34 Labs: Abnormal Lab Results - Last 24 Hours (Table) 10/15/17 10/15/17 10/16/17 Range/Units 17:10 20:51 07:25 RBC (3.80-5.40) m/uL MCV (80.0-100.0) fL Plt Count (150-450) k/uL Sodium (137-145) mmol/L Creatinine (0.52-1.04) mg/dL POC Glucose (mg/dL) 152 H 169 H 129 H (75-99) mg/dL Calcium (8.4-10.2) mg/dL ALT (9-52) U/L Total Protein (6.3-8.2) g/dL Albumin (3.5-5.0) g/dL 10/16/17 10/16/17 Range/Units 08:34 08:34 RBC 3.43 L (3.80-5.40) m/uL MCV 104.9 H (80.0-100.0) fL Plt Count 556 H (150-450) k/uL Sodium 134 L (137-145) mmol/L Creatinine 0.48 L (0.52-1.04) mg/dL POC Glucose (mg/dL) (75-99) mg/dL Calcium 7.9 L (8.4-10.2) mg/dL ALT 59 H (9-52) U/L Total Protein 4.6 L (6.3-8.2) g/dL Albumin 2.2 L (3.5-5.0) g/dL Microbiology - Last 24 Hours (Table) 10/12/17 07:47 Blood Culture - Preliminary Blood No Growth after 96 hours Assessment and Plan Plan: 1. Acute hypoxic respiratory failure secondary pneumonia and COPD exacerbation 2. Bilateral pneumonia right greater than left with sepsis present on admission : Sputum culture showing normal nisreen. Infectious disease and pulmonary service are following. Patient is currently on Rocephin and Levaquin. Patient improving X Ray today 10/16/17 compared with CXR from 10/11/17 and it shows improvement there is still significant pneumonia in the R lower lobe with pleural effusion will continue IV antibiotics at this time. 3. Acute COPD exacerbation: Continue with IV Solu-Medrol and bronchodilators 4. Acute kidney injury: Likely related to dehydration and pneumonia. Improved with IV fluids. Creatinine has now normalized 5. Hyponatremia sodium 123 on admission: Sodium level improving now up to 135. Also completely related to patient's dehydration or daily beer intake. Repeat sodium level in a.m. no evidence of malignancy on CAT scan 6. Hypothyroidism continue Synthroid 7. Nicotine dependence discussed smoking cessation. At this time patient is refusing nicotine patch. 8. Mildly elevated AST and alk phos: No abdominal pain. Likely related to patient's alcohol use. Levels are trending down, continue to monitor 9. Alcohol dependence: Patient reporting she drinks 1 beer Daily. She's been placed on the CIWA protocol with multivitamin and thiamine 10. Essential hypertension: Patient did have hypotension on admission. Improved with IV fluids. Lisinopril on hold. 11. One positive blood culture with Streptococcus pneumonia. Repeat blood culture negative. We'll await further infectious disease recommendations GI prophylaxis Pepcid and DVT prophylaxis subcu heparin Consult physical therapy Today patient was seen and examined labs and x-ray reports and medication were reviewed She is complaining of constipation a dose of lactulose was added Continue current medications otherwise
[2017-10-16 15:06] VITALS: BMI 20.5
--- NOTE | 2017-10-16 17:44 | PN ---
PROGRESS NOTE DATE OF SERVICE: 10/16/2017. REASON FOR FOLLOWUP: Strep pneumo bacteremia and pneumonia. INTERVAL HISTORY: The patient is afebrile. She seems to be breathing comfortably. The patient denies having any chest pain. No shortness of breath. Occasional cough. No abdominal pain or any diarrhea. EXAMINATION: Blood pressure is 131/70 with a pulse of 82, temperature of 97.1. She is 92% 2 L nasal cannula. General description is a middle-aged female up in the bed in no distress. RESPIRATORY SYSTEM: Unlabored breathing with decreased breath sounds. No wheeze. HEART: S1, S2. Regular rate and rhythm. ABDOMEN: Soft, no tenderness. LABS: Hemoglobin 11.4, white count 9.7, BUN of 17, creatinine 0.48. Blood culture repeat has been negative. She did have a chest x-ray this morning, some improvement, . DIAGNOSTIC IMPRESSION AND PLAN: Patient with step pneumo bacteremia secondary to pneumonia. The patient clinically responding to the Rocephin and Levaquin. The patient continues to improve. To finish therapy with oral Ceftin 500 mg twice a day for another 10 days. Script has been sent to the pharmacy and follow up in the office in a week. Continue supportive care. MMODL / IJN: [id number] /
[2017-10-17] MEDS: LEVOTHYROXINE 50 MCG TAB PO SCH (06:36)
--- NOTE | 2017-10-17 07:51 | P.PN ---
Subjective Progress Note Date: 10/17/17 Principal diagnosis: Severe sepsis, bilateral pneumonia, acute hypoxic respirator failure, severe COPD, acute renal failure, electrolyte imbalance with severe hypernatremia, 10/17/2017, patient seen eval reexamined during the rounds patient remains on supplemental oxygen does get short of breath activity and exertion and cough patient is being treated for bacteremia related to strep and bilateral pneumonia and acute hypoxic respiratory failure with severe COPD emphysema, last set of laboratory data and medications reviewed hyponatremia has been stable, would continue IV antibiotics and steroid at the time of discharge possibly next 48 hours we'll switch to oral 10/16/2017, patient seen eval reexamined during the rounds clinically doing well awake and alert breathing comfortably would recommend to check pulse ox at room air if remains stable can be discharged home on oral antibiotics reading treatments and oral prednisone with follow-up on outpatient setting okay with ID services 10/15/2017, patient seen and evaluated examined today she is slightly better doing better in terms of breathing patient has been sleeping most of the day appetite is getting better her confusion has improved significantly as well 10/14/2017, patient seen and evaluated examined during the rounds she is sitting upright in the chair she still short of breath on activity and exertion still continued to have issues associated with the right-sided chest wall pain related to old rib fractures and clavicle fracture happened about a year ago, she has dry nonproductive cough with dyspnea on exertion severity or shortness breath is improved but has not been back to baseline, patient has been consult educated about smoking cessation at length, her blood cultures positive for Streptococcus pneumonia on October 11 repeat culture performed next day has been negative so far, sputum has been negative as well, her white cell count shows a slow decline is down to 13,000, renal functions have improved and normal was back to baseline is still have some component of prerenal azotemia though, her HIV testing including influenza and A and B are both negative 10/13/2017, patient seen eval examined during the rounds clinically patient remained short of breath but severity has improved still have intermittent cough congestion patient remains on broad-spectrum antibiotics breathing treatment and steroids last chest x-ray performed yesterday reviewed and compared with the prior x-rays other radiographic data reviewed as well care plan discussed with the patient at length, patient has been consult about smoking cessation Ms. Walker is a 57-year-old female with extensive history of smoking and nicotine use she has not been feeling well with progressive increased shortness breath cough congestion for over 7 days to a week duration patient has been treated with on outpatient setting without any significant relief due to persistent problem increasing breathing difficulty decided to come into emergency department for further evaluation and intervention and treatment she denies any hemoptysis does have cough which is associated with thick sputum production her appetite has been poor she has lost 15-20 pounds in the last couple of weeks patient has been being treated with IV steroids breathing treatments antibiotics patient also had the recent computed tomography scan performed which shows patchy bilateral infiltrate laboratory data significant for acute renal failure significant hyponatremia and severe leukocytosis in addition patient has been hypoxic as well and hypotensive requiring fluid resuscitation emergency department lactic acid was however normal Chest x-ray on admission showed patchy bilateral infiltrates worse on the right than the left. White count on admission 31.6 lactic acid 1.0. She was started on IV antibiotics Azactam and Levaquin in the ER. Sputum culture pending. Influenza screen negative. Patient had a computed tomography scan of the chest showing multifocal infiltrates right greater than left and trace right pleural effusion. Patient was also started on IV steroids and nebulizer treatments in the ER. Patient had evidence of hyponatremia with a sodium of 123 inches, 134 with IV fluids. Patient also has evidence of acute kidney injury with creatinine of 1.7 which is improved to 1.35. Patient also had some hypotension in the ER which improved with IV fluids. Last blood pressure is 126/69. Patient is having chest pain with her cough. On specific questioning patient denies any nausea or vomiting, denies any fever or chills or sweats. Denies any urinary symptoms. Was complaining of some constipation did have a small hard bowel movement this morning. She is drinking prune juice and Colace has been added. Patient is also currently on 3 L nasal cannula satting at 94%. She does not use oxygen at home. He does not have a nebulizer machine she is still a active smoker has been smoking about a week ago. She uses albuterol as needed MDI along with Qvar without any significant relief Objective - Vital Signs Vital signs: Vital Signs Temp 98.1 F 10/17/17 06:05 Pulse 65 10/17/17 06:05 Resp 16 10/17/17 06:05 BP 129/79 10/17/17 06:05 Pulse Ox 96 10/17/17 06:05 Intake & Output 10/16/17 10/17/17 10/17/17 18:59 06:59 18:59 Intake Total 300 Balance 300 Weight 54.4 kg 54.4 kg Intake: Oral 300 Other: Voiding Method Toilet Toilet # Voids 2 2 - Exam Limitations: no limitations General appearance: alert, in mild respiratory distress, does get short of breath activity and exertion Head exam: Unremarkable and normal Eye exam: normal appearance, PERRL ENT exam: normal oropharynx Neck exam: Mild prominence neck veins were seen, no significant jugular vein is distention no bruits present Respiratory exam: Coarse breath sounds, bilateral rales (Right base), rhonchi Cardiovascular Exam: regular rate, normal rhythm, no gallop rub or murmur GI/Abdominal exam: soft. Absent: tenderness Extremities exam: normal inspection. Absent: pedal edema, calf tenderness Neurological exam: alert, oriented 3 no focal neurological deficit moving all 4 extremities Psychiatric exam: normal affect, normal mood Skin exam: normal color - Labs CBC & Chem 7: 10/16/17 08:34 10/16/17 08:34 Labs: Abnormal Lab Results - Last 24 Hours (Table) 10/16/17 10/16/17 Range/Units 08:34 08:34 RBC 3.43 L (3.80-5.40) m/uL MCV 104.9 H (80.0-100.0) fL Plt Count 556 H (150-450) k/uL Sodium 134 L (137-145) mmol/L Creatinine 0.48 L (0.52-1.04) mg/dL Calcium 7.9 L (8.4-10.2) mg/dL ALT 59 H (9-52) U/L Total Protein 4.6 L (6.3-8.2) g/dL Albumin 2.2 L (3.5-5.0) g/dL Microbiology - Last 24 Hours (Table) 10/12/17 07:47 Blood Culture - Preliminary Blood No Growth after 96 hours Assessment and Plan Assessment: Severe sepsis Streptococcal bacteremia and pneumonia Bilateral pneumonia Acute hypoxic respirator failure Severe COPD Acute renal failure related to pneumonia dehydration and likely acute tubular necrosis related to that, renal functions continued to improve Severe and significant hyponatremia, continued to improve Hypertension hypertensive cardiovascular disease Extensive history of smoking and nicotine use Plan: Broad-spectrum antibiotic, IV steroids, continued to taper it down slowly Breathing treatments Gentle rehydration Patient has been educated by about smoking cessation Deep breathing exercise incentive spirometry Increase activity as tolerated Monitor renal functions and sodium level closely homologue reviewed computed tomography scan and radiographic studies and laboratory data Further recommendations pending plan of care as per clinical response of patient Time with Patient: Greater than 30
[2017-10-17] MEDS: BUDESONIDE 0.5 MG/2 ML NEBU INHALATION SCH ×2 (08:35→20:29)
[2017-10-17] MEDS: IPRATROPIUM-ALBUTEROL 3 ML NEB INHALATION SCH ×4 (08:35→20:29)
[2017-10-17 09:20] LABS: Basophils % (A) 0 %; Eosinophils # (A) 0.1 k/uL (0-0.7); Eosinophils % (A) 1 %; HCT 36.3 % (34.0-46.0); HGB 11.8 gm/dL (11.4-16.0); Lymphocytes # (A) 2.3 k/uL (1.0-4.8); Lymphocytes % (A) 23 %; MCHC 32.6 g/dL (31.0-37.0); MCV 104.4 fL (80.0-100.0); Macrocytosis Slight; Mean Platelet Volume 7.5; Monocytes # (A) 0.4 k/uL (0-1.0); Monocytes % (A) 4 %; Neutrophils # (A) 6.9 k/uL (1.3-7.7); Neutrophils % (A) 70 %; Platelet Count 636 k/uL (150-450); RBC 3.47 m/uL (3.80-5.40); RDW 13.7 % (11.5-15.5); WBC 9.8 k/uL (3.8-10.6)
[2017-10-17] MEDS: HEPARIN SODIUM,PORCINE 5,000 UNIT/ML 1 ML VIAL SQ SCH ×2 (09:28→21:21)
[2017-10-17] MEDS: methylPREDNISolone SOD SUCCI 40 MG/ML 1 ML VIAL IV SCH ×3 (09:28→23:01)
[2017-10-17] MEDS: cefTRIAXone IN SWFI 2,000 MG/20 ML SYRINGE IVP SCH (09:28)
[2017-10-17] MEDS: LISINOPRIL 10 MG TAB PO SCH (09:28)
[2017-10-17] MEDS: guaiFENesin 600 MG TABLET.ER PO SCH ×2 (09:29→21:21)
[2017-10-17] MEDS: DOCUSATE 100 MG CAP PO SCH ×2 (09:29→21:21)
[2017-10-17] MEDS: NYSTATIN 100,000 UNIT/ML SUSP 500,000 UNIT/5 ML CUP PO SCH ×4 (09:30→21:21)
[2017-10-17] MEDS: LEVOFLOXACIN 500 MG TAB PO SCH (09:30)
[2017-10-17] MEDS: FAMOTIDINE 20 MG TAB PO SCH ×2 (09:30→21:20)
[2017-10-17 10:06] LABS: ALT 55 U/L (9-52); AST 37 U/L (14-36); Albumin 2.3 g/dL (3.5-5.0); Alkaline Phosphatase 72 U/L (38-126); Anion Gap 7 mmol/L; Blood Urea Nitrogen 16 mg/dL (7-17); Calcium 8.2 mg/dL (8.4-10.2); Carbon Dioxide 27 mmol/L (22-30); Chloride 99 mmol/L (98-107); Glucose 94 mg/dL (74-99); Potassium 4.6 mmol/L (3.5-5.1); Sodium 133 mmol/L (137-145); Total Bilirubin 0.7 mg/dL (0.2-1.3); Total Protein 4.7 g/dL (6.3-8.2)
[2017-10-17] MEDS: MULTIVITAMINS, THERA 1 EACH TAB PO SCH (11:14)
[2017-10-17] MEDS: THIAMINE 100 MG TAB PO SCH ×2 (11:14→15:38)
--- NOTE | 2017-10-17 13:17 | P.PN ---
Subjective This is a 57-year-old female, patient of Dr. Howell. She has known past medical history of COPD, hypertension, hypothyroidism and nicotine dependence. Patient reports to the emergency room with complaints of worsening shortness of breath and productive cough for one week. Chest x-ray on admission showed patchy bilateral infiltrates worse on the right than the left. White count on admission 31.6 lactic acid 1.0. She was started on IV antibiotics Azactam and Levaquin in the ER. Pulmonary service and infectious disease consulted. Sputum culture pending. Influenza screen negative. Patient had a computed tomography scan of the chest showing multifocal infiltrates right greater than left and trace right pleural effusion. Patient was also started on IV steroids and nebulizer treatments in the ER. Patient had evidence of hyponatremia with a sodium of 123 inches, 134 with IV fluids. Also evidence of acute kidney injury with creatinine of 1.7 which is improved to 1.35. Patient also had some hypotension in the ER which improved with IV fluids. Last blood pressure is 126 /69. Patient is having chest pain with her cough. Denies any nausea or vomiting, denies any fever or chills or sweats. Denies any urinary symptoms. Was complaining of some constipation did have a small hard bowel movement this morning. She is drinking prune juice and Colace has been added. Patient is also currently on 3 L nasal cannula satting at 94%. She does not use oxygen at home. 10/13/2017 patient reports that she feels like her cough is getting stuck now and is unable to produce the sputum. Recent echo has been added. Did have some shortness of breath with ambulating to the restroom without her oxygen. She is followed by infectious disease and pulmonary service. Denies any chest pain. Denies any nausea vomiting. Reports having a small bowel movement yesterday. Denies any burning with urination. On 10/14/2017 patient is alert and oriented 3 she is sitting up in a chair she is complaining of cough and shortness of breath she is complaining of constipation otherwise she denies any complaints there is no chest pain no nausea or vomiting no abdominal pain and no urinary symptoms 10/15/2017 patient still having cough and shortness of breath. Patient still requiring oxygen with 2 L at 96%. Also complaining of some oral thrush. Started on nystatin swish and swallow. HIV screen was negative. Reports having bowel movement after lactulose. Denies any chest pain. Complaining of some sinus congestion. On Mucinex and antibiotics 10/16/2017 patient still having cough and shortness of breath. Patient still requiring oxygen with 2 L at 96%. Also complaining of some oral thrush. Started on nystatin swish and swallow. HIV screen was negative. Patient had a CXR today and it shows improvement compared to 10/11/2017 Reports having bowel movement after lactulose. Denies any chest pain. Complaining of some sinus congestion. continue IV Rocephin and IV Levaquin 10/16/2017 patient alert and oriented 3 still having cough and shortness of breath. Patient still requiring oxygen 2 L with pulse oximetry at 96%. Also complaining of some oral thrush. Started on nystatin swish and swallow. Patient had a CXR yesterday and it shows improvement compared to 10/11/2017 Reports having bowel movement after lactulose. Denies any chest pain. Complaining of some sinus congestion. continue IV Rocephin and po Levaquin Objective - Vital Signs Vital signs: Vital Signs Temp 98.1 F 10/17/17 06:05 Pulse 80 10/17/17 12:35 Resp 16 10/17/17 06:05 BP 129/79 10/17/17 06:05 Pulse Ox 96 10/17/17 06:05 Intake & Output 10/16/17 10/17/17 10/17/17 18:59 06:59 18:59 Intake Total 300 Balance 300 Weight 54.4 kg 54.4 kg Intake: Oral 300 Other: Voiding Method Toilet Toilet # Voids 2 2 - Exam Head normocephalic and atraumatic Neck supple no JVD no goiter Lungs diminished bilaterally no wheezing few crackles right more than left Heart regular rate and rhythm S1-S2, no rub or gallop Abdomen is soft nontender nondistended positive bowel sounds no hepatosplenomegaly Extremities no edema no cyanosis or clubbing Neuro alert and orientated to 3. No gross focal deficit - Labs CBC & Chem 7: 10/17/17 08:52 10/17/17 08:52 Labs: Abnormal Lab Results - Last 24 Hours (Table) 10/17/17 10/17/17 Range/Units 08:52 08:52 RBC 3.47 L (3.80-5.40) m/uL MCV 104.4 H (80.0-100.0) fL Plt Count 636 H (150-450) k/uL Sodium 133 L (137-145) mmol/L Creatinine 0.50 L (0.52-1.04) mg/dL Calcium 8.2 L (8.4-10.2) mg/dL AST 37 H (14-36) U/L ALT 55 H (9-52) U/L Total Protein 4.7 L (6.3-8.2) g/dL Albumin 2.3 L (3.5-5.0) g/dL Microbiology - Last 24 Hours (Table) 10/12/17 07:47 Blood Culture - Preliminary Blood No Growth after 120 hours Assessment and Plan Plan: 1. Acute hypoxic respiratory failure secondary pneumonia and COPD exacerbation 2. Bilateral pneumonia right greater than left with sepsis present on admission : Sputum culture showing normal nisreen. Infectious disease and pulmonary service are following. Patient is currently on Rocephin and Levaquin. Patient improving X Ray today 10/16/17 compared with CXR from 10/11/17 and it shows improvement there is still significant pneumonia in the R lower lobe with pleural effusion will continue IV antibiotics at this time. 3. Acute COPD exacerbation: Continue with IV Solu-Medrol and bronchodilators 4. Acute kidney injury: Likely related to dehydration and pneumonia. Improved with IV fluids. Creatinine has now normalized 5. Hyponatremia sodium 123 on admission: Sodium level improving now up to 135. Also completely related to patient's dehydration or daily beer intake. Repeat sodium level in a.m. no evidence of malignancy on CAT scan 6. Hypothyroidism continue Synthroid 7. Nicotine dependence discussed smoking cessation. At this time patient is refusing nicotine patch. 8. Mildly elevated AST and alk phos: No abdominal pain. Likely related to patient's alcohol use. Levels are trending down, continue to monitor 9. Alcohol dependence: Patient reporting she drinks 1 beer Daily. She's been placed on the CIWA protocol with multivitamin and thiamine 10. Essential hypertension: Patient did have hypotension on admission. Improved with IV fluids. Lisinopril on hold. 11. One positive blood culture with Streptococcus pneumonia. Repeat blood culture negative. We'll await further infectious disease recommendations GI prophylaxis Pepcid and DVT prophylaxis subcu heparin Consult physical therapy Today patient was seen and examined labs and x-ray reports and medication were reviewed, plan to repeat chest x-ray on Thursday possible discharge on Thursday if improving, at this time patient is still requiring oxygen, will reassess on Thursday to see if she would need home oxygen. She is complaining of constipation a dose of lactulose was added Continue current medications otherwise
[2017-10-18 01:04] VITALS: RESP 16
[2017-10-18] MEDS: LEVOTHYROXINE 50 MCG TAB PO SCH (06:20)
[2017-10-18] MEDS: cefTRIAXone IN SWFI 2,000 MG/20 ML SYRINGE IVP SCH (07:34)
[2017-10-18] MEDS: HEPARIN SODIUM,PORCINE 5,000 UNIT/ML 1 ML VIAL SQ SCH ×2 (07:34→21:10)
[2017-10-18] MEDS: LISINOPRIL 10 MG TAB PO SCH (07:34)
[2017-10-18] MEDS: guaiFENesin 600 MG TABLET.ER PO SCH ×2 (07:35→21:09)
[2017-10-18] MEDS: LEVOFLOXACIN 500 MG TAB PO SCH (07:35)
[2017-10-18] MEDS: methylPREDNISolone SOD SUCCI 40 MG/ML 1 ML VIAL IV SCH ×3 (07:35→23:39)
[2017-10-18] MEDS: DOCUSATE 100 MG CAP PO SCH ×2 (07:35→21:10)
[2017-10-18] MEDS: FAMOTIDINE 20 MG TAB PO SCH ×2 (07:35→21:10)
[2017-10-18] MEDS: IPRATROPIUM-ALBUTEROL 3 ML NEB INHALATION SCH ×4 (07:51→20:15)
[2017-10-18] MEDS: BUDESONIDE 0.5 MG/2 ML NEBU INHALATION SCH ×2 (07:51→20:15)
[2017-10-18] MEDS: NYSTATIN 100,000 UNIT/ML SUSP 500,000 UNIT/5 ML CUP PO SCH ×4 (09:18→21:10)
[2017-10-18] MEDS ORDERED: MAGNESIUM HYDROXIDE 2,400 MG/10 ML CUP PO PRN (09:30)
[2017-10-18] MEDS: MULTIVITAMINS, THERA 1 EACH TAB PO SCH (12:49)
[2017-10-18] MEDS: THIAMINE 100 MG TAB PO SCH ×2 (12:49→16:59)
--- NOTE | 2017-10-18 15:36 | P.PN ---
Subjective Progress Note Date: 10/18/17 This is a 57-year-old female, patient of Dr. Howell. She has known past medical history of COPD, hypertension, hypothyroidism and nicotine dependence. Patient reports to the emergency room with complaints of worsening shortness of breath and productive cough for one week. Chest x-ray on admission showed patchy bilateral infiltrates worse on the right than the left. White count on admission 31.6 lactic acid 1.0. She was started on IV antibiotics Azactam and Levaquin in the ER. Pulmonary service and infectious disease consulted. Sputum culture pending. Influenza screen negative. Patient had a computed tomography scan of the chest showing multifocal infiltrates right greater than left and trace right pleural effusion. Patient was also started on IV steroids and nebulizer treatments in the ER. Patient had evidence of hyponatremia with a sodium of 123 inches, 134 with IV fluids. Also evidence of acute kidney injury with creatinine of 1.7 which is improved to 1.35. Patient also had some hypotension in the ER which improved with IV fluids. Last blood pressure is 126 /69. Patient is having chest pain with her cough. Denies any nausea or vomiting, denies any fever or chills or sweats. Denies any urinary symptoms. Was complaining of some constipation did have a small hard bowel movement this morning. She is drinking prune juice and Colace has been added. Patient is also currently on 3 L nasal cannula satting at 94%. She does not use oxygen at home. 10/13/2017 patient reports that she feels like her cough is getting stuck now and is unable to produce the sputum. Recent echo has been added. Did have some shortness of breath with ambulating to the restroom without her oxygen. She is followed by infectious disease and pulmonary service. Denies any chest pain. Denies any nausea vomiting. Reports having a small bowel movement yesterday. Denies any burning with urination. On 10/14/2017 patient is alert and oriented 3 she is sitting up in a chair she is complaining of cough and shortness of breath she is complaining of constipation otherwise she denies any complaints there is no chest pain no nausea or vomiting no abdominal pain and no urinary symptoms 10/15/2017 patient still having cough and shortness of breath. Patient still requiring oxygen with 2 L at 96%. Also complaining of some oral thrush. Started on nystatin swish and swallow. HIV screen was negative. Reports having bowel movement after lactulose. Denies any chest pain. Complaining of some sinus congestion. On Mucinex and antibiotics 10/16/2017 patient still having cough and shortness of breath. Patient still requiring oxygen with 2 L at 96%. Also complaining of some oral thrush. Started on nystatin swish and swallow. HIV screen was negative. Patient had a CXR today and it shows improvement compared to 10/11/2017 Reports having bowel movement after lactulose. Denies any chest pain. Complaining of some sinus congestion. continue IV Rocephin and IV Levaquin 10/17/2017 patient alert and oriented 3 still having cough and shortness of breath. Patient still requiring oxygen 2 L with pulse oximetry at 96%. Also complaining of some oral thrush. Started on nystatin swish and swallow. Patient had a CXR yesterday and it shows improvement compared to 10/11/2017 Reports having bowel movement after lactulose. Denies any chest pain. Complaining of some sinus congestion. continue IV Rocephin and po Levaquin 10/18/2017 patient is feeling better still complaining of shortness of breath she is alert and oriented 3 able to ambulate without difficulty Patient still requiring oxygen 2 L with pulse oximetry at 96%. Also complaining of some oral thrush. Started on nystatin swish and swallow. Reports having bowel movement after lactulose. Denies any chest pain. Complaining of some sinus congestion. continue IV Rocephin and po Levaquin. Awaiting a repeat chest x-ray tomorrow Objective - Vital Signs Vital signs: Vital Signs Temp 98.8 F 10/18/17 15:03 Pulse 67 10/18/17 15:03 Resp 16 10/18/17 15:03 BP 115/75 10/18/17 15:03 Pulse Ox 99 10/18/17 15:03 Intake & Output 10/17/17 10/18/17 10/18/17 18:59 06:59 18:59 Intake Total 240 Balance 240 Weight 54.4 kg Intake: Oral 240 Other: Voiding Method Toilet # Voids 2 1 1 - Exam Head normocephalic and atraumatic Neck supple no JVD no goiter Lungs diminished bilaterally no wheezing few crackles right more than left Heart regular rate and rhythm S1-S2, no rub or gallop Abdomen is soft nontender nondistended positive bowel sounds no hepatosplenomegaly Extremities no edema no cyanosis or clubbing Neuro alert and orientated to 3. No gross focal deficit - Labs CBC & Chem 7: 10/17/17 08:52 10/17/17 08:52 Labs: Microbiology - Last 24 Hours (Table) 10/12/17 07:47 Blood Culture - Final Blood No Growth after 144 hours Assessment and Plan Plan: 1. Acute hypoxic respiratory failure secondary pneumonia and COPD exacerbation 2. Bilateral pneumonia right greater than left with sepsis present on admission : Sputum culture showing normal nisreen. Infectious disease and pulmonary service are following. Patient is currently on Rocephin and Levaquin. Patient improving X Ray today 10/16/17 compared with CXR from 10/11/17 and it shows improvement there is still significant pneumonia in the R lower lobe with pleural effusion will continue IV antibiotics at this time. Will repeat chest x -ray on 10/19/2017 3. Acute COPD exacerbation: Continue with IV Solu-Medrol and bronchodilators 4. Acute kidney injury: Likely related to dehydration and pneumonia. Improved with IV fluids. Creatinine has now normalized 5. Hyponatremia sodium 123 on admission: Sodium level improving now up to 135. Also completely related to patient's dehydration or daily beer intake. Repeat sodium level in a.m. no evidence of malignancy on CAT scan 6. Hypothyroidism continue Synthroid 7. Nicotine dependence discussed smoking cessation. At this time patient is refusing nicotine patch. 8. Mildly elevated AST and alk phos: No abdominal pain. Likely related to patient's alcohol use. Levels are trending down, continue to monitor 9. Alcohol dependence: Patient reporting she drinks 1 beer Daily. She's been placed on the CIWA protocol with multivitamin and thiamine 10. Essential hypertension: Patient did have hypotension on admission. Improved with IV fluids. Lisinopril on hold. 11. One positive blood culture with Streptococcus pneumonia. Repeat blood culture negative. We'll await further infectious disease recommendations GI prophylaxis Pepcid and DVT prophylaxis subcu heparin Consult physical therapy Today patient was seen and examined labs and x-ray reports and medication were reviewed, plan to repeat chest x-ray on Thursday possible discharge on Thursday if improving, at this time patient is still requiring oxygen, will reassess on Thursday to see if she would need home oxygen. She is complaining of constipation a dose of lactulose was added Continue current medications otherwise
--- NOTE | 2017-10-19 05:37 | PN ---
PROGRESS NOTE DATE OF SERVICE: 10/18/2017. REASON FOR FOLLOWUP: Strep pneumo bacteremia and pneumonia. INTERVAL HISTORY: The patient is afebrile. She is breathing comfortably. Denies having any chest pain. No shortness of breath. No cough. No nausea, vomiting. No abdominal pain. No diarrhea. EXAMINATION: Blood pressure 118/75 with a pulse of 77, temperature 98.8. She is 92% on room air. General description is a middle aged female lying in bed in no distress. Respiratory system: Unlabored breathing. Decreased breath sounds, no wheeze. Heart S1, S2. Regular rate and rhythm. Abdomen soft, no tenderness. LABS: Hemoglobin is 11.1, white count 9.8. BUN of 16, creatinine 0.50. DIAGNOSTIC IMPRESSION AND PLAN: Patient with Strep pneumo bacteremia secondary to pneumonia. Patient has significant clinical improvement. Currently on Rocephin and Levaquin. PLAN: To finish therapy with oral Ceftin with close outpatient followup. Continue supportive care. MMODL / IJN: [id number] /
[2017-10-19 06:17] VITALS: BP 111/72; TEMP 99.1
[2017-10-19] MEDS: LEVOTHYROXINE 50 MCG TAB PO SCH (06:22)
[2017-10-19] MEDS: BUDESONIDE 0.5 MG/2 ML NEBU INHALATION SCH (07:30)
[2017-10-19] MEDS: IPRATROPIUM-ALBUTEROL 3 ML NEB INHALATION SCH ×2 (07:30→11:16)
--- NOTE | 2017-10-19 08:27 | XR ---
EXAMINATION TYPE: XR chest 2V DATE OF EXAM: 10/19/2017 COMPARISON: Chest x-ray 10/16/2017 HISTORY: Follow-up pneumonia TECHNIQUE: Frontal and lateral views of the chest are obtained. FINDINGS: There is some improvement in aeration at the lung bases. No evident pneumothorax. Heart si ze is stable. No evident pneumothorax. IMPRESSION: Some interval improvement in aeration, difficult to exclude small effusions
[2017-10-19] MEDS: LEVOFLOXACIN 500 MG TAB PO SCH (08:39)
[2017-10-19] MEDS: NYSTATIN 100,000 UNIT/ML SUSP 500,000 UNIT/5 ML CUP PO SCH ×2 (08:39→13:24)
[2017-10-19] MEDS: LISINOPRIL 10 MG TAB PO SCH (08:39)
[2017-10-19] MEDS: cefTRIAXone IN SWFI 2,000 MG/20 ML SYRINGE IVP SCH (08:39)
[2017-10-19] MEDS: methylPREDNISolone SOD SUCCI 40 MG/ML 1 ML VIAL IV SCH (08:39)
[2017-10-19] MEDS: HEPARIN SODIUM,PORCINE 5,000 UNIT/ML 1 ML VIAL SQ SCH (08:39)
[2017-10-19] MEDS: FAMOTIDINE 20 MG TAB PO SCH (08:40)
[2017-10-19] MEDS: DOCUSATE 100 MG CAP PO SCH (08:40)
[2017-10-19] MEDS: guaiFENesin 600 MG TABLET.ER PO SCH (08:40)
--- NOTE | 2017-10-19 09:57 | P.PN ---
Subjective Progress Note Date: 10/18/17 (Laboratory entry note) Principal diagnosis: Severe sepsis, bilateral pneumonia, acute hypoxic respirator failure, severe COPD, acute renal failure, electrolyte imbalance with severe hypernatremia, 10/18/2017, patient seen and evaluated and examined in the medical floor she is still short of breath has intermittent cough and wheezing the severity has significantly improved patient has been using oxygen off and on her cough congestion shortness of breath has improved, medications reviewed laboratory data reviewed, patient remains on antibiotics and IV steroids and breathing treatments clinically and radiographically has improved, labs reviewed medications reviewed along with radiographic studies my last chest x-ray performed October 16 revealed resolving pneumonia at bilateral bases 10/17/2017, patient seen eval reexamined during the rounds patient remains on supplemental oxygen does get short of breath activity and exertion and cough patient is being treated for bacteremia related to strep and bilateral pneumonia and acute hypoxic respiratory failure with severe COPD emphysema, last set of laboratory data and medications reviewed hyponatremia has been stable, would continue IV antibiotics and steroid at the time of discharge possibly next 48 hours we'll switch to oral 10/16/2017, patient seen eval reexamined during the rounds clinically doing well awake and alert breathing comfortably would recommend to check pulse ox at room air if remains stable can be discharged home on oral antibiotics reading treatments and oral prednisone with follow-up on outpatient setting okay with ID services 10/15/2017, patient seen and evaluated examined today she is slightly better doing better in terms of breathing patient has been sleeping most of the day appetite is getting better her confusion has improved significantly as well 10/14/2017, patient seen and evaluated examined during the rounds she is sitting upright in the chair she still short of breath on activity and exertion still continued to have issues associated with the right-sided chest wall pain related to old rib fractures and clavicle fracture happened about a year ago, she has dry nonproductive cough with dyspnea on exertion severity or shortness breath is improved but has not been back to baseline, patient has been consult educated about smoking cessation at length, her blood cultures positive for Streptococcus pneumonia on October 11 repeat culture performed next day has been negative so far, sputum has been negative as well, her white cell count shows a slow decline is down to 13,000, renal functions have improved and normal was back to baseline is still have some component of prerenal azotemia though, her HIV testing including influenza and A and B are both negative 10/13/2017, patient seen eval examined during the rounds clinically patient remained short of breath but severity has improved still have intermittent cough congestion patient remains on broad-spectrum antibiotics breathing treatment and steroids last chest x-ray performed yesterday reviewed and compared with the prior x-rays other radiographic data reviewed as well care plan discussed with the patient at length, patient has been consult about smoking cessation Ms. Walker is a 57-year-old female with extensive history of smoking and nicotine use she has not been feeling well with progressive increased shortness breath cough congestion for over 7 days to a week duration patient has been treated with on outpatient setting without any significant relief due to persistent problem increasing breathing difficulty decided to come into emergency department for further evaluation and intervention and treatment she denies any hemoptysis does have cough which is associated with thick sputum production her appetite has been poor she has lost 15-20 pounds in the last couple of weeks patient has been being treated with IV steroids breathing treatments antibiotics patient also had the recent computed tomography scan performed which shows patchy bilateral infiltrate laboratory data significant for acute renal failure significant hyponatremia and severe leukocytosis in addition patient has been hypoxic as well and hypotensive requiring fluid resuscitation emergency department lactic acid was however normal Chest x-ray on admission showed patchy bilateral infiltrates worse on the right than the left. White count on admission 31.6 lactic acid 1.0. She was started on IV antibiotics Azactam and Levaquin in the ER. Sputum culture pending. Influenza screen negative. Patient had a computed tomography scan of the chest showing multifocal infiltrates right greater than left and trace right pleural effusion. Patient was also started on IV steroids and nebulizer treatments in the ER. Patient had evidence of hyponatremia with a sodium of 123 inches, 134 with IV fluids. Patient also has evidence of acute kidney injury with creatinine of 1.7 which is improved to 1.35. Patient also had some hypotension in the ER which improved with IV fluids. Last blood pressure is 126/69. Patient is having chest pain with her cough. On specific questioning patient denies any nausea or vomiting, denies any fever or chills or sweats. Denies any urinary symptoms. Was complaining of some constipation did have a small hard bowel movement this morning. She is drinking prune juice and Colace has been added. Patient is also currently on 3 L nasal cannula satting at 94%. She does not use oxygen at home. He does not have a nebulizer machine she is still a active smoker has been smoking about a week ago. She uses albuterol as needed MDI along with Qvar without any significant relief Objective - Vital Signs Vital signs: Vital Signs Temp 99.1 F 10/19/17 06:00 Pulse 76 10/19/17 07:40 Resp 16 10/19/17 06:00 BP 111/72 10/19/17 06:00 Pulse Ox 97 10/19/17 06:00 Intake & Output 10/18/17 10/19/17 10/19/17 18:59 06:59 18:59 Intake Total 240 Balance 240 Intake: Oral 240 Other: Voiding Method Toilet Toilet # Voids 1 1 - Exam Limitations: no limitations General appearance: alert, in mild respiratory distress, does get short of breath activity and exertion Head exam: Unremarkable and normal Eye exam: normal appearance, PERRL ENT exam: normal oropharynx Neck exam: Mild prominence neck veins were seen, no significant jugular vein is distention no bruits present Respiratory exam: Coarse breath sounds, bilateral rales (Right base), rhonchi Cardiovascular Exam: regular rate, normal rhythm, no gallop rub or murmur GI/Abdominal exam: soft. Absent: tenderness Extremities exam: normal inspection. Absent: pedal edema, calf tenderness Neurological exam: alert, oriented 3 no focal neurological deficit moving all 4 extremities Psychiatric exam: normal affect, normal mood Skin exam: normal color - Labs CBC & Chem 7: 10/17/17 08:52 10/17/17 08:52 Labs: Microbiology - Last 24 Hours (Table) 10/12/17 07:47 Blood Culture - Final Blood No Growth after 144 hours Assessment and Plan Assessment: Severe sepsis Streptococcal bacteremia and pneumonia Bilateral pneumonia Acute hypoxic respirator failure Severe COPD Acute renal failure related to pneumonia dehydration and likely acute tubular necrosis related to that, renal functions continued to improve Severe and significant hyponatremia, continued to improve Hypertension hypertensive cardiovascular disease Extensive history of smoking and nicotine use Plan: Broad-spectrum antibiotic, IV steroids, continued to taper it down slowly Breathing treatments Gentle rehydration Patient has been educated by about smoking cessation Deep breathing exercise incentive spirometry Increase activity as tolerated Monitor renal functions and sodium level closely homologue reviewed computed tomography scan and radiographic studies and laboratory data Further recommendations pending plan of care as per clinical response of patient Time with Patient: Greater than 30
--- NOTE | 2017-10-19 10:04 | P.PN ---
Subjective Progress Note Date: 10/19/17 Principal diagnosis: Severe sepsis, bilateral pneumonia, acute hypoxic respirator failure, severe COPD, acute renal failure, electrolyte imbalance with severe hypernatremia, 10/19/2017, patient seen and evaluated examined during the rounds she is moving around in the room she is off of oxygen breathing comfortably denies any cough or sputum production scripts have been provided already will defer antibiotics to the infectious disease services patient will likely need nebulizer therapy tapering steroids on outpatient setting 10/18/2017, patient seen and evaluated and examined in the medical floor she is still short of breath has intermittent cough and wheezing the severity has significantly improved patient has been using oxygen off and on her cough congestion shortness of breath has improved, medications reviewed laboratory data reviewed, patient remains on antibiotics and IV steroids and breathing treatments clinically and radiographically has improved, labs reviewed medications reviewed along with radiographic studies my last chest x-ray performed October 16 revealed resolving pneumonia at bilateral bases 10/17/2017, patient seen eval reexamined during the rounds patient remains on supplemental oxygen does get short of breath activity and exertion and cough patient is being treated for bacteremia related to strep and bilateral pneumonia and acute hypoxic respiratory failure with severe COPD emphysema, last set of laboratory data and medications reviewed hyponatremia has been stable, would continue IV antibiotics and steroid at the time of discharge possibly next 48 hours we'll switch to oral 10/16/2017, patient seen eval reexamined during the rounds clinically doing well awake and alert breathing comfortably would recommend to check pulse ox at room air if remains stable can be discharged home on oral antibiotics reading treatments and oral prednisone with follow-up on outpatient setting okay with ID services 10/15/2017, patient seen and evaluated examined today she is slightly better doing better in terms of breathing patient has been sleeping most of the day appetite is getting better her confusion has improved significantly as well 10/14/2017, patient seen and evaluated examined during the rounds she is sitting upright in the chair she still short of breath on activity and exertion still continued to have issues associated with the right-sided chest wall pain related to old rib fractures and clavicle fracture happened about a year ago, she has dry nonproductive cough with dyspnea on exertion severity or shortness breath is improved but has not been back to baseline, patient has been consult educated about smoking cessation at length, her blood cultures positive for Streptococcus pneumonia on October 11 repeat culture performed next day has been negative so far, sputum has been negative as well, her white cell count shows a slow decline is down to 13,000, renal functions have improved and normal was back to baseline is still have some component of prerenal azotemia though, her HIV testing including influenza and A and B are both negative 10/13/2017, patient seen eval examined during the rounds clinically patient remained short of breath but severity has improved still have intermittent cough congestion patient remains on broad-spectrum antibiotics breathing treatment and steroids last chest x-ray performed yesterday reviewed and compared with the prior x-rays other radiographic data reviewed as well care plan discussed with the patient at length, patient has been consult about smoking cessation Ms. Walker is a 57-year-old female with extensive history of smoking and nicotine use she has not been feeling well with progressive increased shortness breath cough congestion for over 7 days to a week duration patient has been treated with on outpatient setting without any significant relief due to persistent problem increasing breathing difficulty decided to come into emergency department for further evaluation and intervention and treatment she denies any hemoptysis does have cough which is associated with thick sputum production her appetite has been poor she has lost 15-20 pounds in the last couple of weeks patient has been being treated with IV steroids breathing treatments antibiotics patient also had the recent computed tomography scan performed which shows patchy bilateral infiltrate laboratory data significant for acute renal failure significant hyponatremia and severe leukocytosis in addition patient has been hypoxic as well and hypotensive requiring fluid resuscitation emergency department lactic acid was however normal Chest x-ray on admission showed patchy bilateral infiltrates worse on the right than the left. White count on admission 31.6 lactic acid 1.0. She was started on IV antibiotics Azactam and Levaquin in the ER. Sputum culture pending. Influenza screen negative. Patient had a computed tomography scan of the chest showing multifocal infiltrates right greater than left and trace right pleural effusion. Patient was also started on IV steroids and nebulizer treatments in the ER. Patient had evidence of hyponatremia with a sodium of 123 inches, 134 with IV fluids. Patient also has evidence of acute kidney injury with creatinine of 1.7 which is improved to 1.35. Patient also had some hypotension in the ER which improved with IV fluids. Last blood pressure is 126/69. Patient is having chest pain with her cough. On specific questioning patient denies any nausea or vomiting, denies any fever or chills or sweats. Denies any urinary symptoms. Was complaining of some constipation did have a small hard bowel movement this morning. She is drinking prune juice and Colace has been added. Patient is also currently on 3 L nasal cannula satting at 94%. She does not use oxygen at home. He does not have a nebulizer machine she is still a active smoker has been smoking about a week ago. She uses albuterol as needed MDI along with Qvar without any significant relief Objective - Vital Signs Vital signs: Vital Signs Temp 99.1 F 10/19/17 06:00 Pulse 76 10/19/17 07:40 Resp 16 10/19/17 06:00 BP 111/72 10/19/17 06:00 Pulse Ox 97 10/19/17 06:00 Intake & Output 10/18/17 10/19/17 10/19/17 18:59 06:59 18:59 Intake Total 240 Balance 240 Intake: Oral 240 Other: Voiding Method Toilet Toilet # Voids 1 1 - Exam Limitations: no limitations General appearance: alert, in mild respiratory distress, does get short of breath activity and exertion Head exam: Unremarkable and normal Eye exam: normal appearance, PERRL ENT exam: normal oropharynx Neck exam: Mild prominence neck veins were seen, no significant jugular vein is distention no bruits present Respiratory exam: Coarse breath sounds, improved air entry fine expiratory rhonchi scattered but significant improved compared to prior exam Cardiovascular Exam: regular rate, normal rhythm, no gallop rub or murmur GI/Abdominal exam: soft. Absent: tenderness Extremities exam: normal inspection. Absent: pedal edema, calf tenderness Neurological exam: alert, oriented 3 no focal neurological deficit moving all 4 extremities Psychiatric exam: normal affect, normal mood Skin exam: normal color - Labs CBC & Chem 7: 10/17/17 08:52 10/17/17 08:52 Labs: Microbiology - Last 24 Hours (Table) 10/12/17 07:47 Blood Culture - Final Blood No Growth after 144 hours - Imaging and Cardiology Chest x-ray: report reviewed, image reviewed (Left-sided infiltrates are resolved, right side is small subsegmental atelectasis with very very small effusion cannot be excluded) Assessment and Plan Assessment: Severe sepsis Streptococcal bacteremia and pneumonia Bilateral pneumonia, the left side infiltrates are resolved right side is still small residue of the infiltrate with subsegmental atelectasis and very small effusion likely reactive Acute hypoxic respirator failure Severe COPD Acute renal failure related to pneumonia dehydration and likely acute tubular necrosis related to that, renal functions continued to improve Severe and significant hyponatremia, continued to improve Hypertension hypertensive cardiovascular disease Extensive history of smoking and nicotine use Plan: Broad-spectrum antibiotic, will defer final antibiotics on outpatient to the infectious disease services IV steroids and be switched to oral Medrol Dosepak at the time of discharge prescription provided Patient can be discharged home with follow-up on outpatient setting will monitor residual right lower lobe infiltrate/atelectasis/effusion which is very minimal Breathing treatments, prescription provided for nebulizer machine as well as medications Patient has been educated by about smoking cessation Deep breathing exercise incentive spirometry Increase activity as tolerated Monitor renal functions and sodium level closely homologue reviewed computed tomography scan and radiographic studies and laboratory data Further recommendations pending plan of care as per clinical response of patient Time with Patient: Greater than 30
[2017-10-19] MEDS: MULTIVITAMINS, THERA 1 EACH TAB PO SCH (11:40)
[2017-10-19] MEDS: THIAMINE 100 MG TAB PO SCH (11:40)
--- NOTE | 2017-10-19 11:53 | PN ---
PROGRESS NOTE DATE OF SERVICE: 10/19/2017 REASON FOR FOLLOWUP: Strep pneumo bacteremia secondary to pneumonia. INTERVAL HISTORY: The patient is afebrile. She is breathing comfortably. Cough has decreased in intensity, mostly dry in nature. No chest pain. No nausea, vomiting. No abdominal pain. She has been walking in the hallway with the SATs of 90% on room air. PHYSICAL EXAMINATION: Blood pressure 111/72 with a pulse of 84, temperature 99.1. She is 97% to 90% on room air. General description is an elderly female, lying in bed in no distress. RESPIRATORY SYSTEM: Unlabored breathing with decreased breath sounds, no wheeze. HEART: S1, S2. Regular rate and rhythm. ABDOMEN: Soft, no tenderness. EXTREMITIES: No edema of the feet. LABS: Hemoglobin 11.8, white count of 9.8 with a BUN of 16, creatinine 0.50. DIAGNOSTIC IMPRESSION AND PLAN: Patient with strep pneumo bacteremia secondary to pneumonia for which the patient received about 8 days of IV antibiotic therapy. She was switched to Ceftin 500 twice a day for another 10 days with close outpatient followup. Scripts were sent to the pharmacy. MMODL / IJN: [id number] /
[2017-10-19 12:26] VITALS: PULSE 76
--- NOTE | 2017-10-19 13:40 | P.DS ---
Providers Date of admission: 10/11/17 11:51 Expected date of discharge: 10/19/17 Attending physician: Yuniel Ulloa Consults: 10/11/17 12:04 Consult Physician Urgent Consulting Provider: Bryan Coronado Consult Reason/Comments: Pneumonia, sepsis Do you want consulting provider notified?: Yes 10/11/17 18:01 Consult Physician Routine Consulting Provider: Hoang Guy Consult Reason/Comments: infection Do you want consulting provider notified?: Yes Primary care physician: Kaylee Muniz Hospital Course: Diagnosis on discharge: 1. Acute hypoxic respiratory failure secondary pneumonia and COPD exacerbation 2. Bilateral pneumonia right greater than left with sepsis present on admission : Sputum culture showing normal nisreen. Infectious disease and pulmonary service are following. Patient is currently on Rocephin and Levaquin. Patient improving X Ray today 10/16/17 compared with CXR from 10/11/17 and it shows improvement there is still significant pneumonia in the R lower lobe with pleural effusion will continue IV antibiotics at this time. Will repeat chest x -ray on 10/19/2017 3. Acute COPD exacerbation: Continue with IV Solu-Medrol and bronchodilators 4. Acute kidney injury: Likely related to dehydration and pneumonia. Improved with IV fluids. Creatinine has now normalized 5. Hyponatremia sodium 123 on admission: Sodium level improving now up to 135. Also completely related to patient's dehydration or daily beer intake. Repeat sodium level in a.m. no evidence of malignancy on CAT scan 6. Hypothyroidism continue Synthroid 7. Nicotine dependence discussed smoking cessation. At this time patient is refusing nicotine patch. 8. Mildly elevated AST and alk phos: No abdominal pain. Likely related to patient's alcohol use. Levels are trending down, continue to monitor 9. Alcohol dependence: Patient reporting she drinks 1 beer Daily. She's been placed on the CIWA protocol with multivitamin and thiamine 10. Essential hypertension: Patient did have hypotension on admission. Improved with IV fluids. Lisinopril on hold. 11. One positive blood culture with Streptococcus pneumonia. Repeat blood culture negative. We'll await further infectious disease recommendations Hospital course: This is a 57-year-old female, patient of Dr. Howell. She has known past medical history of COPD, hypertension, hypothyroidism and nicotine dependence. Patient reports to the emergency room with complaints of worsening shortness of breath and productive cough for one week. Chest x-ray on admission showed patchy bilateral infiltrates worse on the right than the left. White count on admission 31.6 lactic acid 1.0. She was started on IV antibiotics Azactam and Levaquin in the ER. Pulmonary service and infectious disease consulted. Sputum culture pending. Influenza screen negative. Patient had a computed tomography scan of the chest showing multifocal infiltrates right greater than left and trace right pleural effusion. Patient was also started on IV steroids and nebulizer treatments in the ER. Patient had evidence of hyponatremia with a sodium of 123 inches, 134 with IV fluids. Also evidence of acute kidney injury with creatinine of 1.7 which is improved to 1.35. Patient also had some hypotension in the ER which improved with IV fluids. Last blood pressure is 126 /69. Patient is having chest pain with her cough. Denies any nausea or vomiting, denies any fever or chills or sweats. Denies any urinary symptoms. Was complaining of some constipation did have a small hard bowel movement this morning. She is drinking prune juice and Colace has been added. Patient is also currently on 3 L nasal cannula satting at 94%. She does not use oxygen at home. 10/13/2017 patient reports that she feels like her cough is getting stuck now and is unable to produce the sputum. Recent echo has been added. Did have some shortness of breath with ambulating to the restroom without her oxygen. She is followed by infectious disease and pulmonary service. Denies any chest pain. Denies any nausea vomiting. Reports having a small bowel movement yesterday. Denies any burning with urination. On 10/14/2017 patient is alert and oriented 3 she is sitting up in a chair she is complaining of cough and shortness of breath she is complaining of constipation otherwise she denies any complaints there is no chest pain no nausea or vomiting no abdominal pain and no urinary symptoms 10/15/2017 patient still having cough and shortness of breath. Patient still requiring oxygen with 2 L at 96%. Also complaining of some oral thrush. Started on nystatin swish and swallow. HIV screen was negative. Reports having bowel movement after lactulose. Denies any chest pain. Complaining of some sinus congestion. On Mucinex and antibiotics 10/16/2017 patient still having cough and shortness of breath. Patient still requiring oxygen with 2 L at 96%. Also complaining of some oral thrush. Started on nystatin swish and swallow. HIV screen was negative. Patient had a CXR today and it shows improvement compared to 10/11/2017 Reports having bowel movement after lactulose. Denies any chest pain. Complaining of some sinus congestion. continue IV Rocephin and IV Levaquin 10/17/2017 patient alert and oriented 3 still having cough and shortness of breath. Patient still requiring oxygen 2 L with pulse oximetry at 96%. Also complaining of some oral thrush. Started on nystatin swish and swallow. Patient had a CXR yesterday and it shows improvement compared to 10/11/2017 Reports having bowel movement after lactulose. Denies any chest pain. Complaining of some sinus congestion. continue IV Rocephin and po Levaquin 10/18/2017 patient is feeling better still complaining of shortness of breath she is alert and oriented 3 able to ambulate without difficulty Patient still requiring oxygen 2 L with pulse oximetry at 96%. Also complaining of some oral thrush. Started on nystatin swish and swallow. Reports having bowel movement after lactulose. Denies any chest pain. Complaining of some sinus congestion. continue IV Rocephin and po Levaquin. Awaiting a repeat chest x-ray tomorrow On 10/19/2017 patient is feeling better chest x-ray done this morning reveal significant improvement pulse oximetry after walking on room air was 92% no need for home oxygen patient was seen by infectious disease and by pulmonary Dr. Arechiga she was cleared for discharge she will have Medrol Dosepak and Ceftin 500 mg twice daily for 10 more days she will also have a nebulizer and DuoNeb 4 times a day when necessary and Pulmicort twice a day she will follow-up with her primary care physician Dr. Howell she will also follow-up with Dr. Arechiga accounting manager Patient Condition at Discharge: Serious Plan - Discharge Summary Discharge Rx Participant: Yes New Discharge Prescriptions: New Cefuroxime Axetil [Ceftin] 500 mg PO BID #20 tab Albuterol Inhaler [Ventolin Hfa Inhaler] 2 puff INHALATION Q6HR PRN #1 inhaler PRN Reason: Shortness Of Breath Beclomethasone Dip 80 Mcg/Puff [Qvar 80 mcg] 2 puff INHALATION BID #1 inhaler Budesonide [Pulmicort] 0.5 mg INHALATION BID #60 neb Ipratropium-Albuterol Nebulize [Duoneb 0.5 mg-3 mg/3 ml Soln] 3 ml INHALATION QID #120 neb methylPREDNISolone [Medrol Dose Pack] 4 mg PO DIRECTED #1 pack Ipratropium-Albuterol Nebulize [Duoneb 0.5 mg-3 mg/3 ml Soln] 3 ml INHALATION RT-QID ampul.neb Ipratropium-Albuterol Nebulize [Duoneb 0.5 mg-3 mg/3 ml Soln] 3 ml INHALATION RT-Q4H PRN ampul.neb PRN Reason: shortness of breath Multivitamins, Thera [Multivitamin (formulary)] 1 each PO DAILY@1200 tab Continue Albuterol Inhaler [Ventolin Hfa Inhaler] 2 puff INHALATION RT-Q4H PRN PRN Reason: Shortness Of Breath Lisinopril [Zestril] 10 mg PO DAILY Levothyroxine Sodium [Synthroid] 50 mcg PO DAILY Multivit with Calcium,Iron,Min [Women's Multivitamin] 1 tab PO DAILY Beclomethasone Dipropionate [Qvar 80 mcg] 1 puff INHALATION RT-BID [place]-3 Fatty Acids/Fish Oil [Fish Oil 1,000 mg Softgel] 1 cap PO DAILY Discharge Medication List Albuterol Inhaler [Ventolin Hfa Inhaler] 2 puff INHALATION RT-Q4H PRN 01/04/14 [ History] Lisinopril [Zestril] 10 mg PO DAILY 01/04/14 [History] Beclomethasone Dipropionate [Qvar 80 mcg] 1 puff INHALATION RT-BID 10/11/17 [ History] Levothyroxine Sodium [Synthroid] 50 mcg PO DAILY 10/11/17 [History] Multivit with Calcium,Iron,Min [Women's Multivitamin] 1 tab PO DAILY 10/11/17 [ History] [place]-3 Fatty Acids/Fish Oil [Fish Oil 1,000 mg Softgel] 1 cap PO DAILY [History] Cefuroxime Axetil [Ceftin] 500 mg PO BID #20 tab 10/16/17 [Rx] Albuterol Inhaler [Ventolin Hfa Inhaler] 2 puff INHALATION Q6HR PRN #1 inhaler 10/19/17 [Rx] Beclomethasone Dip 80 Mcg/Puff [Qvar 80 mcg] 2 puff INHALATION BID #1 inhaler [Rx] Budesonide [Pulmicort] 0.5 mg INHALATION BID #60 neb 10/19/17 [Rx] Ipratropium-Albuterol Nebulize [Duoneb 0.5 mg-3 mg/3 ml Soln] 3 ml INHALATION QID #120 neb 10/19/17 [Rx] Ipratropium-Albuterol Nebulize [Duoneb 0.5 mg-3 mg/3 ml Soln] 3 ml INHALATION RT -Q4H PRN ampul.neb 10/19/17 [Rx] Ipratropium-Albuterol Nebulize [Duoneb 0.5 mg-3 mg/3 ml Soln] 3 ml INHALATION RT -QID ampul.neb 10/19/17 [Rx] Multivitamins, Thera [Multivitamin (formulary)] 1 each PO DAILY@1200 tab [Rx] methylPREDNISolone [Medrol Dose Pack] 4 mg PO DIRECTED #1 pack 10/19/17 [Rx] Follow up Appointment(s)/Referral(s): Bryan Coronado MD [STAFF PHYSICIAN] - 1 Week Kaylee Muniz MD [Primary Care Provider] - 1-2 days Hoang Guy MD [STAFF PHYSICIAN] - 10/29/17 Patient Instructions/Handouts: Bacterial Pneumonia (DC) Activity/Diet/Wound Care/Special Instructions:
== END 2017-10-19 14:51 | disposition home or self-care (01) | DRG 871 ==
LOC: EC 10:02 → 6SEL 11:51 → 4MS4W 10-12 21:50
PROVIDERS: ADMIT Internal Medicine; ATTEND Internal Medicine
DX: A41.9 Sepsis, unspecified organism (principal); N17.0 Acute kidney failure with tubular necrosis; J96.01 Acute respiratory failure with hypoxia; J90 Pleural effusion, not elsewhere classified; J13 Pneumonia due to Streptococcus pneumoniae; I95.9 Hypotension, unspecified; B37.0 Candidal stomatitis; E87.0 Hyperosmolality and hypernatremia; E87.1 Hypo-osmolality and hyponatremia; J44.0 Chronic obstructive pulmonary disease with (acute) lower respiratory infection; J44.1 Chronic obstructive pulmonary disease with (acute) exacerbation; I11.9 Hypertensive heart disease without heart failure; I10 Essential (primary) hypertension; R65.20 Severe sepsis without septic shock; E03.9 Hypothyroidism, unspecified; F17.210 Nicotine dependence, cigarettes, uncomplicated; K59.00 Constipation, unspecified; E86.0 Dehydration; F10.20 Alcohol dependence, uncomplicated; Z98.51 Tubal ligation status; Z82.49 Family history of ischemic heart disease and other diseases of the circulatory system; Z99.81 Dependence on supplemental oxygen; Z82.5 Family history of asthma and other chronic lower respiratory diseases; Z79.899 Other long term (current) drug therapy; Z71.6 Tobacco abuse counseling; Z88.1 Allergy status to other antibiotic agents; Z88.0 Allergy status to penicillin; Z88.8 Allergy status to other drugs, medicaments and biological substances
CPT/HCPCS: 36415; 71046; 71250; 80053; 82550; 82553; 83036; 83605; 83880; 84484; 85025; 85610; 85730; 87040; 87070; 87077; 87186; 87205; 87390; 87502; 93005; 94640; 94760; 96365; 96366; 96368; 99291

== ENCOUNTER → 2018-04-23 | Outpatient (CLI) | payer BC ==
--- NOTE | 2018-04-24 09:41 | ECHOF ---
Referral Reason:R06.00 Dyspnea MEASUREMENTS -------- HEIGHT: 162.6 cm WEIGHT: 55.8 kg BP: IVSd: 1.2 cm (0.6 - 1.1) LVIDd: 4.0 cm (3.9 - 5.3) LVPWd: 1.2 cm (0.6 - 1.1) IVSs: 1.3 cm LVIDs: 3.0 cm LVPWs: 1.3 cm LAESV Index (A-L): 30.93 ml/m Ao Diam: 3.5 cm (2.0 - 3.7) AV Cusp: 2.1 cm (1.5 - 2.6) LA Diam: 2.7 cm (2.7 - 3.8) MV EXCURSION: 16.703 mm (> 18.000) MV EF SLOPE: 68 mm/s (70 - 150) EPSS: 0.7 cm MV E Everardo: 0.60 m/s MV DecT: 217 ms MV A Everardo: 0.76 m/s MV E/A Ratio: 0.79 FINDINGS -------- Sinus rhythm. This was a technically good study. The left ventricular size is normal. There is mild concentric left ventricular hypertrophy. Overa ll left ventricular systolic function is normal with, an EF between 55 - 60 %. The right ventricle is normal in size and function. LA is midly dilated 29-33ml/m2. RA appears enlarged. Aortic valve is trileaflet and is mildly thickened. There is no evidence of aortic regurgitation. There is no evidence of aortic stenosis. The mitral valve leaflets are mildly thickened. There is trace to mild mitral regurgitation. Trace tricuspid regurgitation present. Right ventricular systolic pressure is normal at < 35 mmHg. There is no evidence of pulmonary hypertension. The pulmonic valve was not well visualized. The aortic root size is normal. Normal inferior vena cava with normal inspiratory collapse consistent with estimated right atrial pre ssure of 5 mmHg. There is no pericardial effusion. CONCLUSIONS -------- 1. Sinus rhythm. 2. This was a technically good study. 3. The left ventricular size is normal. 4. There is mild concentric left ventricular hypertrophy. 5. Overall left ventricular systolic function is normal with, an EF between 55 - 60 %. 6. LA is midly dilated 29-33ml/m2. 7. RA appears enlarged. 8. Aortic valve is trileaflet and is mildly thickened. 9. The mitral valve leaflets are mildly thickened. 10. There is trace to mild mitral regurgitation. 11. Trace tricuspid regurgitation present. 12. Right ventricular systolic pressure is normal at < 35 mmHg. 13. There is no evidence of pulmonary hypertension. 14. The pulmonic valve was not well visualized. 15. The aortic root size is normal. 16. There is no pericardial effusion. VOC[employer] CHILDC[employer] TEACHER: Anderson Jewell RDCS
== END | disposition home or self-care (01) ==
LOC: RADECHMAIN 16:15
PROVIDERS: ATTEND Family Medicine
DX: I08.0 Rheumatic disorders of both mitral and aortic valves (principal)
CPT/HCPCS: 93306

== ENCOUNTER 2021-08-02 13:46 | Observation (INO) | payer BC ==
[2021-08-02] MEDS ORDERED: KETOROLAC 15 MG/ML 1 ML VIAL IM STA (14:10)
--- NOTE | 2021-08-02 15:39 | ED ---
General Adult HPI - General Source: patient, RN notes reviewed Mode of arrival: wheelchair Limitations: no limitations <Silvino Truong - Last Filed: 08/02/21 15:42> <Han Miles - Last Filed: 08/02/21 17:59> - General Chief complaint: Extremity Injury, Lower Stated complaint: Fall-R hip pain Time Seen by Provider: 08/02/21 14:00 - History of Present Illness Initial comments: Patient originally seen by Dr. Miles. However he was unable to document. Patient is a pleasant 61-year-old female presenting to the emergency Department with right-sided pelvic pain. Patient was walking her dog yesterday when she was "clipped" from the back. Patient fell directly on her right buttocks. Patient has had discomfort since that time. Patient is able to walk by shuffling or using a walker with discomfort. No other area of injury or concern. No loss of bowel or bladder products. No head injury or loss of consciousness. No abdominal or back pain. (Silvino Truong) - Related Data Home Medications Medication Instructions Recorded Confirmed Beclomethasone Dipropionate [Qvar 1 puff INHALATION RT-BID 10/11/17 08/02/21 80 mcg] Levothyroxine Sodium [Synthroid] 50 mcg PO DAILY 10/11/17 08/02/21 Albuterol Sulfate [Proair Hfa] 2 puff INHALATION RT-Q4H PRN 08/02/21 08/02/21 Ipratropium-Albuterol Nebulize 3 ml INHALATION RT-QID PRN 08/02/21 08/02/21 [Duoneb 0.5 mg-3 mg/3 ml Soln] Lisinopril(Unknown) 1 tab PO DAILY 08/02/21 08/02/21 Allergies Allergy/AdvReac Type Severity Reaction Status Date / Time amoxicillin trihydrate Allergy Anaphylaxis Verified 08/02/21 16:51 [From Augmentin] potassium clavulanate Allergy Anaphylaxis Verified 08/02/21 16:51 [From Augmentin] Review of Systems ROS Other: All systems not noted in ROS Statement are negative. Constitutional: Denies: fever Eyes: Denies: eye pain ENT: Denies: ear pain Respiratory: Denies: cough Cardiovascular: Denies: chest pain Endocrine: Denies: fatigue Gastrointestinal: Denies: abdominal pain Genitourinary: Denies: dysuria Musculoskeletal: Reports: as per HPI. Denies: back pain Skin: Denies: rash Neurological: Denies: headache, weakness <Silvino Truong - Last Filed: 08/02/21 15:42> ROS Other: All systems not noted in ROS Statement are negative. <Han Miles - Last Filed: 08/02/21 17:59> ROS Statement: Those systems with pertinent positive or pertinent negative responses have been documented in the HPI. Past Medical History Past Medical History: Asthma, COPD, Hypertension History of Any Multi-Drug Resistant Organisms: None Reported Past Surgical History: Orthopedic Surgery, Tubal Ligation Additional Past Surgical History / Comment(s): RIGHT ANKLE SURGERY Past Anesthesia/Blood Transfusion Reactions: No Reported Reaction Past Psychological History: No Psychological Hx Reported Smoking Status: Current every day smoker Past Alcohol Use History: Daily, Occasional Past Drug Use History: None Reported - Past Family History Mother History Unknown: Yes Family Medical History: Hypertension Father Family Medical History: COPD, Coronary Artery Disease (CAD) <Silvino Truong - Last Filed: 08/02/21 15:42> General Exam Limitations: no limitations General appearance: alert, in no apparent distress Head exam: Present: atraumatic, normocephalic Eye exam: Present: normal appearance Neck exam: Present: normal inspection. Absent: tenderness Respiratory exam: Present: normal lung sounds bilaterally Cardiovascular Exam: Present: regular rate, normal rhythm Expanded Peripheral pulses: 2+: Posterior Tibialis (R), Posterior Tibialis (L) GI/Abdominal exam: Present: soft. Absent: distended, tenderness Extremities exam: Present: tenderness (Tenderness superior pubic rami region) Back exam: Absent: vertebral tenderness Neurological exam: Present: alert. Absent: motor sensory deficit Expanded Sensory exam: Lower Extremity Light Touch: Normal Motor strength exam: RLE: 5, LLE: 5 Eye Response: (4) open spontaneously Motor Response: (6) obeys commands Verbal Response: (5) oriented Psychiatric exam: Present: normal affect, normal mood Skin exam: Present: normal color <Silvino Truong - Last Filed: 08/02/21 15:42> Course <Silvino Truong - Last Filed: 08/02/21 15:42> Vital Signs 08/02/21 13:52 Temperature 98.2 F Pulse Rate 83 Respiratory 18 Rate Blood Pressure 182/104 O2 Sat by Pulse 98 Oximetry - Reevaluation(s) Reevaluation #1: 08/02/21 15:43 Case was discussed with orthopedics Dr. García who does agree with computed tomography scan. (Silvino Truong) Medical Decision Making - Lab Data Result diagrams: 08/02/21 16:02 08/02/21 16:02 <Han Miles - Last Filed: 08/02/21 17:59> - Medical Decision Making chest x-ray showed superior and inferior rami fracture. CAT scan was done and showed a sacral fracture nondisplaced in the superior and inferior rami fracture. I spoke with Dr. García he agreed to admit the patient for pain control and for training on how to nonweight bear over the next few weeks. Patient was in agreement with this plan. (Han Mlies) - Lab Data Lab Results 08/02/21 08/02/21 08/02/21 Range/Units 16:02 16:02 16:02 WBC 11.4 H (3.8-10.6) k/uL RBC 3.99 (3.80-5.40) m/uL Hgb 14.4 (11.4-16.0) gm/dL Hct 42.3 (34.0-46.0) % MCV 105.9 H (80.0-100.0) fL MCH 36.2 H (25.0-35.0) pg MCHC 34.2 (31.0-37.0) g/dL RDW 12.8 (11.5-15.5) % Plt Count 308 (150-450) k/uL MPV 6.7 Neutrophils % 84 % Lymphocytes % 10 % Monocytes % 4 % Eosinophils % 1 % Basophils % 1 % Neutrophils # 9.5 H (1.3-7.7) k/uL Lymphocytes # 1.2 (1.0-4.8) k/uL Monocytes # 0.4 (0-1.0) k/uL Eosinophils # 0.1 (0-0.7) k/uL Basophils # 0.1 (0-0.2) k/uL Macrocytosis Slight PT 10.5 (9.0-12.0) sec INR 1.0 (<1.2) APTT 24.6 (22.0-30.0) sec Sodium (137-145) mmol/L Potassium (3.5-5.1) mmol/L Chloride (98-107) mmol/L Carbon Dioxide (22-30) mmol/L Anion Gap mmol/L BUN (7-17) mg/dL Creatinine (0.52-1.04) mg/dL Est GFR (CKD-EPI)AfAm (>60 ml/min/1.73 sqM) Est GFR (CKD-EPI)NonAf (>60 ml/min/1.73 sqM) Glucose (74-99) mg/dL Calcium (8.4-10.2) mg/dL Total Bilirubin (0.2-1.3) mg/dL AST (14-36) U/L ALT (4-34) U/L Alkaline Phosphatase (38-126) U/L Total Protein (6.3-8.2) g/dL Albumin (3.5-5.0) g/dL Urine Color Light Yellow Urine Appearance Clear (Clear) Urine pH 6.5 (5.0-8.0) Ur Specific Strang 1.005 (1.001-1.035) Urine Protein Negative (Negative) Urine Glucose (UA) Negative (Negative) Urine Ketones 1+ H (Negative) Urine Blood Negative (Negative) Urine Nitrite Negative (Negative) Urine Bilirubin Negative (Negative) Urine Urobilinogen <2.0 (<2.0) mg/dL Ur Leukocyte Esterase Negative (Negative) Blood Type Blood Type Confirm Blood Type Recheck Bld Type Recheck Status Antibody Screen Spec Expiration Date 08/02/21 08/02/21 08/02/21 Range/Units 16:02 16:02 16:07 WBC (3.8-10.6) k/uL RBC (3.80-5.40) m/uL Hgb (11.4-16.0) gm/dL Hct (34.0-46.0) % MCV (80.0-100.0) fL MCH (25.0-35.0) pg MCHC (31.0-37.0) g/dL RDW (11.5-15.5) % Plt Count (150-450) k/uL MPV Neutrophils % % Lymphocytes % % Monocytes % % Eosinophils % % Basophils % % Neutrophils # (1.3-7.7) k/uL Lymphocytes # (1.0-4.8) k/uL Monocytes # (0-1.0) k/uL Eosinophils # (0-0.7) k/uL Basophils # (0-0.2) k/uL Macrocytosis PT (9.0-12.0) sec INR (<1.2) APTT (22.0-30.0) sec Sodium 127 L (137-145) mmol/L Potassium 4.2 (3.5-5.1) mmol/L Chloride 98 (98-107) mmol/L Carbon Dioxide 20 L (22-30) mmol/L Anion Gap 9 mmol/L BUN 6 L (7-17) mg/dL Creatinine 0.38 L (0.52-1.04) mg/dL Est GFR (CKD-EPI)AfAm >90 (>60 ml/min/1.73 sqM) Est GFR (CKD-EPI)NonAf >90 (>60 ml/min/1.73 sqM) Glucose 109 H (74-99) mg/dL Calcium 9.2 (8.4-10.2) mg/dL Total Bilirubin 1.7 H (0.2-1.3) mg/dL AST 43 H (14-36) U/L ALT 21 (4-34) U/L Alkaline Phosphatase 73 (38-126) U/L Total Protein 7.2 (6.3-8.2) g/dL Albumin 4.4 (3.5-5.0) g/dL Urine Color Urine Appearance (Clear) Urine pH (5.0-8.0) Ur Specific Strang (1.001-1.035) Urine Protein (Negative) Urine Glucose (UA) (Negative) Urine Ketones (Negative) Urine Blood (Negative) Urine Nitrite (Negative) Urine Bilirubin (Negative) Urine Urobilinogen (<2.0) mg/dL Ur Leukocyte Esterase (Negative) Blood Type O Negative Blood Type Confirm O Negative Blood Type Recheck No Previous Record Bld Type Recheck Status CABO Indicated Antibody Screen NEGATIVE Spec Expiration Date 08/05/2021 - 2301 Disposition <Silvino Truong - Last Filed: 08/02/21 15:42> Time of Disposition: 17:58 <Han Miles - Last Filed: 08/02/21 17:59> Clinical Impression: Sacral fracture, Fracture of multiple pubic rami Disposition: ADMITTED IP TO THIS HOSP Referrals: Sammie Santamaria NPC [Primary Care Provider] - 1-2 days
[2021-08-02] MEDS ORDERED: MORPHINE SULFATE 4 MG/ML SYRINGE IVP STA (15:42)
--- NOTE | 2021-08-02 15:46 | XR ---
EXAMINATION TYPE: XR Hip RT and AP Pelvis DATE OF EXAM: 08/02/2021 COMPARISON: NONE HISTORY: Trauma and pain TECHNIQUE: A single AP view of the pelvis is obtained. Two views of the right hip are obtained. FINDINGS: There are displaced fractures of the right superior and inferior pubic rami, displaced frac ture at the level of ischial tuberosity also noted. No evident dislocation. There is a scoliotic curv ature of the lumbar spine with degenerative disc changes. Bone mineralization is reduced. IMPRESSION: Multiple pelvic fractures
[2021-08-02 16:13] LABS: Appearance,Urine Clear (Clear); Bilirubin,Urine Negative (Negative); Blood,Urine Negative (Negative); Color,Urine Light Yellow; Glucose,Urine (UA) Negative (Negative); Ketones,Urine 1+ (Negative); Leukocyte Esterase,Urine Negative (Negative); Nitrite,Urine Negative (Negative); PH, Urine 6.5 (5.0-8.0); Protein,Urine Negative (Negative); Specific Gravity,Urine 1.005 (1.001-1.035); Urobilinogen,Urine <2.0 mg/dL (<2.0)
[2021-08-02 16:14] LABS: Basophils # (A) 0.1 k/uL (0-0.2); Basophils % (A) 1 %; Eosinophils # (A) 0.1 k/uL (0-0.7); Eosinophils % (A) 1 %; HCT 42.3 % (34.0-46.0); HGB 14.4 gm/dL (11.4-16.0); Lymphocytes # (A) 1.2 k/uL (1.0-4.8); Lymphocytes % (A) 10 %; MCH 36.2 pg (25.0-35.0); MCHC 34.2 g/dL (31.0-37.0); MCV 105.9 fL (80.0-100.0); Macrocytosis Slight; Mean Platelet Volume 6.7; Monocytes # (A) 0.4 k/uL (0-1.0); Monocytes % (A) 4 %; Neutrophils # (A) 9.5 k/uL (1.3-7.7); Neutrophils % (A) 84 %; Platelet Count 308 k/uL (150-450); RBC 3.99 m/uL (3.80-5.40); RDW 12.8 % (11.5-15.5); WBC 11.4 k/uL (3.8-10.6)
[2021-08-02 16:22] LABS: Partial Thromboplastin Time 24.6 sec (22.0-30.0); Prothrombin Time 10.5 sec (9.0-12.0)
[2021-08-02 16:35] LABS: ALT 21 U/L (4-34); AST 43 U/L (14-36); African American GFR (CKD) >90 (>60 ml/min/1.73 sqM); Albumin 4.4 g/dL (3.5-5.0); Alkaline Phosphatase 73 U/L (38-126); Anion Gap 9 mmol/L; Blood Urea Nitrogen 6 mg/dL (7-17); Calcium 9.2 mg/dL (8.4-10.2); Carbon Dioxide 20 mmol/L (22-30); Chloride 98 mmol/L (98-107); Glucose 109 mg/dL (74-99); Non-African American GFR(CKD) >90 (>60 ml/min/1.73 sqM); Potassium 4.2 mmol/L (3.5-5.1); Sodium 127 mmol/L (137-145); Total Bilirubin 1.7 mg/dL (0.2-1.3); Total Protein 7.2 g/dL (6.3-8.2)
--- NOTE | 2021-08-02 17:38 | CT ---
EXAMINATION TYPE: CT pelvis w con DATE OF EXAM: 08/02/2021 COMPARISON: HISTORY: right hip/flank pain post fall CT DLP: 450.7 mGycm Automated exposure control for dose reduction was used. CONTRAST: Performed with IV Contrast, patient injected with 100 mL of Isovue 300. Images obtained from the iliac crest to the subtrochanteric femurs with IV contrast. There are small renal cyst measuring up to 1 cm. Kidneys have normal size. There is no hydronephrosis . Delayed images show normal renal excretion. Bladder distends smoothly with contrast. There are bila teral ureteral jets. There is no free fluid in the pelvis. Uterus is anteverted. There is mild lumbar levoscoliosis. There are spondylotic changes in the lumbar spine. There is no compression fracture. There is multilevel vacuum disks. There is a degenerative first-degree L3-4 spondylolisthesis. There is fracture of the right superior and inferior pubic rami. There is fracture through the right ischio. The proximal femurs are intact. Acetabula appear intact. Sacroiliac joints appear intact. The re is nondisplaced fracture of the lateral mass of the sacrum anteriorly on the right side. There is no evidence of a bowel obstruction. There is no sign of free air. There is no ascites. There is some increased density on the right lateral pelvic sidewall as well as around the pubic bone on t he right side consistent with hematoma. IMPRESSION: Nondisplaced right lateral mass sacral anterior fracture. Fractures right superior and inferior pubic rami and right ischium without significant displacement. Mild hematoma is seen around the lower pelvic fractures. Lumbar levoscoliosis.
[2021-08-02] MEDS ORDERED: SODIUM CHLORIDE 0.9% 1,000 ML IV ONE (17:59)
[2021-08-02] MEDS: MORPHINE SULFATE 2 MG/ML SYRINGE IVP PRN ×2 (18:50→23:15)
[2021-08-02] MEDS ORDERED: ALBUTEROL NEBULIZED 2.5 MG/3 ML INHALATION PRN (20:41)
[2021-08-02] MEDS ORDERED: IPRATROPIUM-ALBUTEROL 3 ML NEB INHALATION PRN (20:41)
[2021-08-03] MEDS: MORPHINE SULFATE 2 MG/ML SYRINGE IVP PRN (04:39)
[2021-08-03] MEDS ORDERED: LEVOTHYROXINE 50 MCG TAB PO SCH (06:30)
[2021-08-03] MEDS ORDERED: FLUTICASONE 110 MCG INHALER INHALATION SCH (08:00)
[2021-08-03] MEDS: HYDROcodone/APAP 5-325MG 1 EACH TAB PO PRN ×3 (08:03→13:08)
[2021-08-03] MEDS ORDERED: lisinopriL 20 MG TAB PO SCH (09:00)
--- NOTE | 2021-08-03 10:20 | P.HPOR ---
History of Present Illness H&P Date: 08/03/21 Chief Complaint: Pelvic pain status post fall Patient is very pleasant 61-year-old female who is seen and examined today at bedside. She presented to the emergency room yesterday because she had had a fall at home on . She was walking her dog and got tripped up by her dog and fell hard onto her backside and hip onto the ice. She had acute pain but was able to get up and get around but had significant difficulty trying to get around. Her pain was getting worse and on Thursday she presented to the emergency room. She really has pain around her pelvis on the right side around right hip and towards her gluteus. She denies any chest pain shortness of breath. She denies any loss of consciousness. She denies hitting her head. She says that she has not had pain in her back or in her hip or pelvis in the past. 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 She says that the pain worsens when she tries to stand up and walk around. She denies any changes in bowel bladder function. She denies any nausea or vomiting. Review of Systems As stated per HPI. She denies any loss of control of her bowel or bladder. She denies any radiculopathy or lower extremities. She denies any numbness tingling or weakness in her lower extremities. The pain is primarily located around her hip and right gluteus. Past Medical History Past Medical History: Asthma, COPD, Hypertension History of Any Multi-Drug Resistant Organisms: None Reported Past Surgical History: Orthopedic Surgery, Tubal Ligation Additional Past Surgical History / Comment(s): RIGHT ANKLE SURGERY Past Anesthesia/Blood Transfusion Reactions: No Reported Reaction Past Psychological History: No Psychological Hx Reported Smoking Status: Current every day smoker Past Alcohol Use History: Daily, Occasional Past Drug Use History: None Reported - Past Family History Mother History Unknown: Yes Family Medical History: Hypertension Father Family Medical History: Asthma, COPD, Coronary Artery Disease (CAD), Hypertension, Thyroid Disorder Additional Family Medical History / Comment(s): PNA and Sepsis Medications and Allergies Home Medications Medication Instructions Recorded Confirmed Type Beclomethasone Dipropionate [Qvar 1 puff INHALATION RT-BID 10/11/17 08/02/21 History 80 mcg] Levothyroxine Sodium [Synthroid] 50 mcg PO DAILY 10/11/17 08/02/21 History Albuterol Sulfate [Proair Hfa] 2 puff INHALATION RT-Q4H PRN 08/02/21 08/02/21 History Ipratropium-Albuterol Nebulize 3 ml INHALATION RT-QID PRN 08/02/21 08/02/21 History [Duoneb 0.5 mg-3 mg/3 ml Soln] Lisinopril(Unknown) 1 tab PO DAILY 08/02/21 08/02/21 History Allergies Allergy/AdvReac Type Severity Reaction Status Date / Time amoxicillin trihydrate Allergy Anaphylaxis Verified 08/02/21 16:51 [From Augmentin] potassium clavulanate Allergy Anaphylaxis Verified 08/02/21 16:51 [From Augmentin] shellfish derived [Shellfish] Allergy Anaphylaxis Verified 08/03/21 04:31 Physical Examination Osteopathic Statement: *. No significant issues noted on an osteopathic structural exam other than those noted in the History and Physical/Consult. - Hip right Gait: other (She has pain around her right leg when she tries to move around relocated around her hip and gluteus.) Tenderness with palpation: anterior (She is nontender over her greater trochanter. Nontender over her anterior iliac crest. Minimal tenderness around her sacrum. Her skin is clear. There is no open wounds lacerations or abrasions.) Pain with motion: other (I'm able to do internal/external rotation of her hip without any pain bilaterally. She does have pain around her gluteus and her pelvis with raising her leg up off the bed but she is able to do so. She has good strength at her knee ankle foot and toes. Thighs and calves soft nontender.) Results - Labs Labs: Abnormal Lab Results - Last 24 Hours (Table) 08/02/21 08/02/21 08/02/21 Range/Units 16:02 16:02 16:02 WBC 11.4 H (3.8-10.6) k/uL MCV 105.9 H (80.0-100.0) fL MCH 36.2 H (25.0-35.0) pg Neutrophils # 9.5 H (1.3-7.7) k/uL Sodium 127 L (137-145) mmol/L Carbon Dioxide 20 L (22-30) mmol/L BUN 6 L (7-17) mg/dL Creatinine 0.38 L (0.52-1.04) mg/dL Glucose 109 H (74-99) mg/dL Total Bilirubin 1.7 H (0.2-1.3) mg/dL AST 43 H (14-36) U/L Urine Ketones 1+ H (Negative) H & H 08/02/21 Range/Units 16:02 Hgb 14.4 (11.4-16.0) gm/dL Hct 42.3 (34.0-46.0) % Coagulation 08/02/21 Range/Units 16:02 INR 1.0 (<1.2) Result Diagrams: 08/02/21 16:02 08/02/21 16:02 - Diagnostic results Hip x-ray: report reviewed, image reviewed Hip CT: report reviewed (I do not see any posterior sacral disruption or widening of the SI joint. The acetabulum appears to be intact. She does have significant disc degeneration and spondylosis at her lower lumbar spine), image reviewed (X-rays of her pelvis right hip and computed tomography scan of her pelvis reports and images are reviewed. She has superior-inferior pubic rami fractures on the right. There is also evidence of fracture the anterior right sacral ala. I do not see any widening of the SI joint. I do not see any s) Assessment and Plan Assessment: Acute closed book pelvis type fracture with relative stability, status post fall at home Superior and inferior pubic rami fracture with anterior right sacral ala cortical disruption No hemodynamic change No neurologic change Lumbar spondylosis History of hypertension COPD Plan: Acute closed book pelvis type fracture with relative stability, status post fall at home Superior and inferior pubic rami fracture with anterior right sacral ala cortical disruption No hemodynamic change No neurologic change Lumbar spondylosis History of hypertension COPD The patient had a fall with significant fracture on her pelvis. She does not have any hemodynamic changes I don't think she has any instability with her hemodynamic status. Essentially she has a stable closed book pelvis type fracture with fractures at her superior and inferior pubic rami and disruption at the anterior sacral ala on the right. There is no widening of the SI joint and there is no posterior disruption of the sacrum. I think that her fractures can heal with conservative treatment. I do not think that she requires surgical intervention for this at this point. And he was okay for the patient to start to try to mobilize but I would protect her pelvis by keeping her nonweightbearing on the right side and doing transfer training to wheelchair only. I do not want her to try to ambulate on her right and she may only bear weight on her left lower extremity for transfers to wheelchair or to the toilet. I explained this issue with her at length and she seems to understand. She feels that she is comfortable to go home and has good help at home that she would be able to manage with a wheelchair and with transfers. I would like physical therapy to see her for appropriate training for this. We'll arrange for a wheelchair for home and a raised toilet seat with handrails. I have given her some prescription for this and aborted them in the chart. We'll have case management try to help with these arrangements as well. His arrangements are appropriate and she is safe with physical therapy for transfer training to wheelchair and her pain controlled and that he is okay for her to be discharged home today with close follow-up the next 3-10 days. Answers questions best my ability in a language that she can understand and she seems agreeable with this process. We will try to make arrangements for her. If she is unable to mobilize and transfer safely she may need to stay another night.
--- NOTE | 2021-08-03 10:30 | P.DS ---
Providers Date of admission: 08/02/21 18:00 Attending physician: Neymar García Primary care physician: Sammie Santamaria [facility] Hospital Course: The patient presented yesterday to the emergency room after sustaining a fall at home on where she was walking her dog and fell hard onto her back and pelvis. She is found have superior pubic rami fractures with disruption of the anterior right sacral ala. She is hemodynamically stable but having difficulty with trying to mobilize and walk. She denied any loss consciousness chest pain or shortness of breath. She is normally community ambulate without any assistance. Physical Exam Her back is clear without tenderness. There is no open wounds lacerations or abrasions. She is nontender over the midline. She is nontender over procedure sacrum. She has tenderness over her gluteus. She is nontender over ASIS. Nontender at her greater trochanter. She is no pain with internal and external rotation but has pain with bracing her hip up against resisted force. She has good 5 over 5 strength at her lower extremities with dorsi and plantar flexion and EHL Abdomen soft and nontender. Chest has good excursion with deep inspiration and expiration. The patient has active and passive range of motion intact at the upper and lower extremities. There is no acute change in neurologic status. Her thighs and calves soft nontender. Her computed tomography scan of her hip and her pelvis as well as the reports are reviewed. She has evidence of fracture at her superior and inferior. Rami and anterior aspect of her right sacral ala Hospital Course Acute closed book pelvis type fracture with relative stability, status post fall at home Superior and inferior pubic rami fracture with anterior right sacral ala cortical disruption No hemodynamic change No neurologic change Lumbar spondylosis History of hypertension COPD The patient had a fall with significant fracture on her pelvis. She does not have any hemodynamic changes I don't think she has any instability with her hemodynamic status. Essentially she has a stable closed book pelvis type fracture with fractures at her superior and inferior pubic rami and disruption at the anterior sacral ala on the right. There is no widening of the SI joint and there is no posterior disruption of the sacrum. I think that her fractures can heal with conservative treatment. I do not think that she requires surgical intervention for this at this point. And he was okay for the patient to start to try to mobilize but I would protect her pelvis by keeping her nonweightbearing on the right side and doing transfer training to wheelchair only. I do not want her to try to ambulate on her right and she may only bear weight on her left lower extremity for transfers to wheelchair or to the toilet. I explained this issue with her at length and she seems to understand. She feels that she is comfortable to go home and has good help at home that she would be able to manage with a wheelchair and with transfers. I would like physical therapy to see her for appropriate training for this. We'll arrange for a wheelchair for home and a raised toilet seat with handrails. I have given her some prescription for this and aborted them in the chart. We'll have case management try to help with these arrangements as well. His arrangements are appropriate and she is safe with physical therapy for transfer training to wheelchair and her pain controlled and that he is okay for her to be discharged home today with close follow-up the next 3-10 days. Answers questions best my ability in a language that she can understand and she seems agreeable with this process. We will try to make arrangements for her. If she is unable to mobilize and transfer safely she may need to stay another night. Patient Condition at Discharge: Fair Plan - Discharge Summary Discharge Rx Participant: No New Discharge Prescriptions: New HYDROcodone/APAP 5-325MG [Sh[place] 5] 1 each PO Q6HR PRN #28 tab PRN Reason: Pain No Action Levothyroxine Sodium [Synthroid] 50 mcg PO DAILY Beclomethasone Dipropionate [Qvar 80 mcg] 1 puff INHALATION RT-BID Ipratropium-Albuterol Nebulize [Duoneb 0.5 mg-3 mg/3 ml Soln] 3 ml INHALATION RT-QID PRN PRN Reason: Shortness Of Breath Albuterol Sulfate [Proair Hfa] 2 puff INHALATION RT-Q4H PRN PRN Reason: Shortness Of Breath Lisinopril(Unknown) 1 tab PO DAILY Discharge Medication List Beclomethasone Dipropionate [Qvar 80 mcg] 1 puff INHALATION RT-BID 10/11/17 [History] Levothyroxine Sodium [Synthroid] 50 mcg PO DAILY 10/11/17 [History] Albuterol Sulfate [Proair Hfa] 2 puff INHALATION RT-Q4H PRN 08/02/21 [History] Ipratropium-Albuterol Nebulize [Duoneb 0.5 mg-3 mg/3 ml Soln] 3 ml INHALATION RT-QID PRN 08/02/21 [History] Lisinopril(Unknown) 1 tab PO DAILY 08/02/21 [History] HYDROcodone/APAP 5-325MG [[place] 5] 1 each PO Q6HR PRN #28 tab 08/03/21 [Rx] Follow up Appointment(s)/Referral(s): Sammie Santamaria NPC [Primary Care Provider] - 1-2 days Neymar García DO [Doctor of Osteopathic Medicine] - 1 Week Activity/Diet/Wound Care/Special Instructions: Transfer to wheelchair only. Nonweightbearing right lower extremity. May weight-bear on left lower extremity for transfers. Discharge Disposition: HOME WITH HOME HEALTH SERVICES
[2021-08-03 10:54] VITALS: BP 120/75; PULSE 80; RESP 16; TEMP 98.1
== END 2021-08-03 13:24 | disposition home health service (06) ==
LOC: EC 13:46 → INTOOBSV 18:00 → 4SSUR 18:00 → UNDODISIN 08-03 13:24
PROVIDERS: ADMIT Orthopaedic Surgery Orthopaedic Surgery of the Spine; ATTEND Orthopaedic Surgery Orthopaedic Surgery of the Spine
DX: S32.511A Fracture of superior rim of right pubis, initial encounter for closed fracture (principal); S32.10XA Unspecified fracture of sacrum, initial encounter for closed fracture; S32.591A Other specified fracture of right pubis, initial encounter for closed fracture; M47.816 Spondylosis without myelopathy or radiculopathy, lumbar region; J44.9 Chronic obstructive pulmonary disease, unspecified; I10 Essential (primary) hypertension; F17.200 Nicotine dependence, unspecified, uncomplicated; Z20.822 Contact with and (suspected) exposure to COVID-19; Z79.51 Long term (current) use of inhaled steroids; Z79.890 Hormone replacement therapy; Z79.899 Other long term (current) drug therapy; Z88.0 Allergy status to penicillin; Z88.8 Allergy status to other drugs, medicaments and biological substances; Z98.51 Tubal ligation status; Z98.890 Other specified postprocedural states; W01.0XXA Fall on same level from slipping, tripping and stumbling without subsequent striking against object, initial encounter; Y93.K1 Activity, walking an animal; Y92.009 Unspecified place in unspecified non-institutional (private) residence as the place of occurrence of the external cause; Z82.49 Family history of ischemic heart disease and other diseases of the circulatory system; Z83.49 Family history of other endocrine, nutritional and metabolic diseases
CPT/HCPCS: 96376 ×3; 96361 ×3; 96372; 96374; 99285; 36415; 94640; 97162; 86900; 86901; 80053; 85025; 85610; 85730; 86850; 81003; 87635; 73502; 72193; G0378 ×2; J2270 ×3; J1885; Q9967